=== PATIENT | female | born 1995 | race Caucasian/White ===

== ENCOUNTER → 2018-04-07 14:07 | Outpatient (CLI) | payer OTHER, SELFPAY | DX: Z23 Encounter for immunization (principal) | CPT/HCPCS: 90471; 90686 ==

== ENCOUNTER → 2018-10-02 07:40 | Outpatient (CLI) | payer OTHER, SELFPAY ==
[2018-10-02 09:34] LABS: Cholesterol 193 mg/dL (140-199); Glucose 94 mg/dL (70-100); HDL Cholesterol 44 mg/dL (40-60); LDL Cholesterol Calculated 124 mg/dL (<100); Triglycerides 123 mg/dL (35-150)
[2018-10-02 10:28] LABS: Thyroid Stimulating Hormone 2.19 uIU/mL (0.47-4.68)
== END ==
PROVIDERS: PCP Family Medicine; Visit Provider Family Medicine
DX: Z13.1 Encounter for screening for diabetes mellitus (principal); Z13.220 Encounter for screening for lipoid disorders
CPT/HCPCS: 36415; 80061; 82947; 84443

== ENCOUNTER 2019-02-11 16:00 | Outpatient (RCR) | payer OTHER, SELFPAY ==
--- NOTE | 2018-11-12 17:35 | PT.OPPOC ---
Current Diagnoses Pain in right shoulder (11/12/18) Provider Visit Care Team Role Provider Type No Contreras MD Attending Provider Physician Primary Care Provider Specialty: Family Practice Address: [address] [place] [address], [facility] Email: [email or web address] Plan Of Care PT-OP-T Assessment and Plan Start: 11/12/18 17:28 Freq: Status: Active Protocol: Document 11/12/18 17:29 EA (Rec: 11/12/18 17:31 EA [id number]) Physical Therapy Assessment Rehab Potential Rehabilitation Potential Good Evaluation Complexity Number of Personal Factors/Comorbidities 1-2 Number of Body Systems Impaired 1-2 Clinical Presentation at Evaluation Evolving Impairments Impairments Functional Activities Pain ROM Soft Tissue Mobility Strength Goals Three Impairment ROM Nursing Home Goal (LTG) Patient will reach full shoulder functional ROM to enable patient reach object overhead without difficulty. LTG Duration 4 wks Two Impairment Quick Dash 32 Nursing Home Goal (LTG) Quick Dash shoulder functional scale of < 15 to improve shoulder function LTG Duration 4 wks One Impairment NO HEP in place Agricultural Equipment Salesperson Goal (LTG) Patient will exhibits compliance and independent with HEP LTG Duration 3 wks Assessment Summary Assessment Pleasant 23 y/o F patient with referring diagnosis of right shoulder pain. Today patient exhibited difficulty in right UE overhead and backward reaching due to pain and limitation of motion. Assessment reveals weakness to most shoulder motion due to pain. Special tests reveals impingement syndrome with negative to labral tear test. No signs of radial nerve affectation during the tests but patient had reported occasional numbness to triceps region. Palpation reveals garde 2/4 tenderness over anterior and posterior shoulder. In my professional opinion, patient would benefit with skilled PT with a clinical goal of increasing shoulder stability, education, and reaching full ROM to enhamce quality of her life. Physical Therapy Plan Frequency and Duration Frequency of Treatment 2x/Week Duration of Treatment 8 wks Plan of Care Start Date 11/12/18 Plan of Care End Date 12/31/18 Therapeutic Interventions Therapeutic Interventions Home Exercise Program Joint Mobilizations Manual Therapy Patient/Caregiver Education Self-Care/Home Management Soft Tissue Mobilization Taping Therapeutic Activities Therapeutic Exercises Modalities Cold Pack/Ice Massage Electric Stimulation Ultrasound Next Visit Focus/Plan Next Note Type Treatment Note Next Visit Plan Modalities for pain, HEP, Strengthening Plan of Care Dates Plan of Care Start Date 11/12/18 Plan of Care End Date 12/31/18 Please Sign and Return: I have reviewed this Plan of Care and certify that the skilled therapy services above are required to meet the patient?s needs. Physician Signature Date Printed Name and Credentials Clinical Instructor Signature Printed Name and Credentials
--- NOTE | 2018-11-12 17:35 | PT.OIE ---
Current Diagnoses Pain in right shoulder (11/12/18) Past Medical History (Last Updated 09/03/18 @ 20:22 by Christi Correa) Seasonal allergies (Chronic ~2009) Migraines (Chronic ~2017) Ankle pain (Chronic ~2017) Anxiety (Chronic ~2013) Asthma (Chronic ~2009) Depression (Chronic ~2013) Eczema (Chronic ~2013) Headache (Chronic ~2010) Past Surgical History (Last Updated 09/03/18 @ 20:22 by Christi Correa) History of tonsillectomy (Resolved ~1999) Provider Visit Care Team Role Provider Type No Contreras MD Attending Provider Physician Primary Care Provider Specialty: Family Practice Address: [address] [place] [address], [facility] Email: [email or web address] Physical Therapy Initial Evaluation PT-OP-A Visit Information Start: 11/12/18 17:28 Freq: Status: Active Protocol: Document 11/12/18 17:35 EA (Rec: 11/13/18 16:35 EA [id number]) Out-Patient Physical Therapy Visit Information Visit Information Visit Type Initial Evaluation Visit Start Time 16:45 Visit Stop Time 17:30 Total Visit Minutes 45 Visit Number 1 Evaluation Information Evaluation Date 11/12/18 PT-OP-B Current Condition Start: 11/12/18 17:28 Freq: Status: Active Protocol: Document 11/12/18 17:35 EA (Rec: 11/13/18 16:35 EA [id number]) Current Condition History of Current Condition Onset Date 2 months ago Current Complaints Right shoulder localized pain and weakness History of Current Condition Patient reports had shoulder dislocation initially when she was in high school playing volleyball; states multiple dislocation since then and last happen few ago while her leaned on her shoulder while her arm was in the backseat. She reports no major treatment and relocated her shoulder by herself. She reports that in the past weeks since the injury there was no improvement she has been consistent with ICE and resting it. She noticed mostly symptoms increased right after shoulder exercises in the gym. Prior Treatments and Tests None reported formal PT Future Testing and Treatments Planned None reported Treatment Goals Patient/Caregiver Goals 1. Patient would like to strengthen her shoulder to prevent dislocation 2. She wants to get rid of the pain. 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 Current Functional Impairments (Reported) Functional Limitations- ADL's Moderate difficulty in all activities that requires overhead movement, reaching behind the back Functional Limitations- Work/School Difficulty in all task that requires shoulder rotation and overhead movement Functional Limitations- Recreation/ Unable to participate with Hobbies shoulder fitness exercises in the gym PT-OP-C Subjective Start: 11/12/18 17:28 Freq: Status: Active Protocol: Document 11/12/18 17:35 EA (Rec: 11/13/18 16:35 EA [id number]) OP-PT Subjective Patient Comments Patient Comments My shoulder hurts after working out Patient Reported Progress Improving Patient Questionnaires Quick Dash- Upper Extremity Quick Dash UE Score 32 Quick Dash UE Impairment 20 to 39% Impaired (Score 20- 39) OP-PT Pain Assessment Pain Assessment Grid Paper Pain Assessment Grid Completed Yes Location Right Anterior Shoulder Pain Location Details 7 Scale Used Numeric (1 - 10) Description Sharp Tightness Frequency Intermittent Pain Aggravating Factors Activity Exercise Pain Alleviating Factors Cold PT-OP-E Functional Tests Start: 11/12/18 17:28 Freq: Status: Active Protocol: Document 11/12/18 17:35 EA (Rec: 11/13/18 16:35 EA [id number]) Functional Tests Apley's Scratch Test Action 1- Left yes Action 1- Right yes Action 2- Left T4 Action 2- Right C7 Action 3- Left T8 Action 3- Right T12 PT-OP-J Posture/Palpation/Skin Start: 11/12/18 17:28 Freq: Status: Active Protocol: Document 11/12/18 17:35 EA (Rec: 11/13/18 16:35 EA [id number]) Posture Evaluation Comments Posture Comments WFL Palpation Assessment Location One Palpation Location anterior and posterior shoulder Palpation Findings Tenderness Palpation Details Grade 2/4 tenderness over rotaor cuff insertion and post shoulder PT-OP-K Range of Motion Start: 11/12/18 17:28 Freq: Status: Active Protocol: Document 11/12/18 17:35 EA (Rec: 11/13/18 16:35 EA [id number]) Shoulder Goniometric Range of Motion Shoulder Right Active Flexion 160 Abduction 160 External Rotation at 90 degrees 80 Abduction Internal Rotation 50 Left Active Shoulder ROM WFL Yes Shoulder ROM Limitations Shoulder ROM Limitations Pain PT-OP-L Special Tests Start: 11/12/18 17:28 Freq: Status: Active Protocol: Document 11/12/18 17:35 EA (Rec: 11/13/18 16:35 EA [id number]) Special Tests Shoulder Special Tests Clunk Test Test Results - Saavedra Gagandeep Impingement Test Results + Speed's Biceps Test Results - Elevation Impingement Test Results + Lift-Off Rotator Cuff Test Results + PT-OP-M Strength Start: 11/12/18 17:28 Freq: Status: Active Protocol: Document 11/12/18 17:35 EA (Rec: 11/13/18 16:35 EA [id number]) Shoulder Strength Shoulder Manual Muscle Testing Right Flexion 4- Good- Extension 4- Good- Abduction (C5) 4 Good Adduction 4 Good External Rotation 4- Good- Internal Rotation 4- Good- PT-OP-Q Treatments Start: 11/12/18 17:28 Freq: Status: Active Protocol: Document 11/12/18 17:35 EA (Rec: 11/13/18 16:35 EA [id number]) Self-Care/Home Management Treatment Education Patient Education Home Exercise Program Joint Protection Pain Management Safety PT-OP-T Assessment and Plan Start: 11/12/18 17:28 Freq: Status: Active Protocol: Document 11/12/18 17:29 EA (Rec: 11/12/18 17:31 EA [id number]) Physical Therapy Assessment Rehab Potential Rehabilitation Potential Good Evaluation Complexity Number of Personal Factors/Comorbidities 1-2 Number of Body Systems Impaired 1-2 Clinical Presentation at Evaluation Evolving Impairments Impairments Functional Activities Pain ROM Soft Tissue Mobility Strength Goals Three Impairment ROM Mcfp Goal (LTG) Patient will reach full shoulder functional ROM to enable patient reach object overhead without difficulty. LTG Duration 4 wks Two Impairment Quick Dash 32 Yard Attendant Goal (LTG) Quick Dash shoulder functional scale of < 15 to improve shoulder function LTG Duration 4 wks One Impairment NO HEP in place Yard Attendant Goal (LTG) Patient will exhibits compliance and independent with HEP LTG Duration 3 wks Assessment Summary Assessment Pleasant 23 y/o F patient with referring diagnosis of right shoulder pain. Today patient exhibited difficulty in right UE overhead and backward reaching due to pain and limitation of motion. Assessment reveals weakness to most shoulder motion due to pain. Special tests reveals impingement syndrome with negative to labral tear test. No signs of radial nerve affectation during the tests but patient had reported occasional numbness to triceps region. Palpation reveals garde 2/4 tenderness over anterior and posterior shoulder. In my professional opinion, patient would benefit with skilled PT with a clinical goal of increasing shoulder stability, education, and reaching full ROM to enhance quality of her life. Physical Therapy Plan Frequency and Duration Frequency of Treatment 2x/Week Duration of Treatment 8 wks Plan of Care Start Date 11/12/18 Plan of Care End Date 12/31/18 Therapeutic Interventions Therapeutic Interventions Home Exercise Program Joint Mobilizations Manual Therapy Patient/Caregiver Education Self-Care/Home Management Soft Tissue Mobilization Taping Therapeutic Activities Therapeutic Exercises Modalities Cold Pack/Ice Massage Electric Stimulation Ultrasound Next Visit Focus/Plan Next Note Type Treatment Note Next Visit Plan Modalities for pain, HEP, [place]
--- NOTE | 2018-11-14 15:55 | PT.OTN ---
Current Diagnoses Pain in right shoulder (11/14/18) Physical Therapy Treatment Note PT-OP-A Visit Information Start: 11/12/18 17:28 Freq: Status: Active Protocol: Document 11/14/18 15:15 DCW (Rec: 11/14/18 15:55 DCW [id number]) Out-Patient Physical Therapy Visit Information Visit Information Visit Type Treatment Note Visit Start Time 15:15 Visit Stop Time 16:10 Total Visit Minutes 55 Visit Number 2 Number of MISCELLANEOUS MACHINE OPERATOR Visits 0 Evaluation Information Evaluation Date 11/12/18 PT-OP-B Current Condition Start: 11/12/18 17:28 Freq: Status: Active Protocol: Document 11/12/18 17:35 EA (Rec: 11/13/18 16:35 EA [id number]) Current Condition History of Current Condition Onset Date 2 months ago Current Complaints Right shoulder localized pain and weakness History of Current Condition Patient reports had shoulder dislocation initially when she was in highschool playing volleyball; states multple dislocation since then and last happen few ago while her leaned on her shoulder while her arm was in the backseat. She reports no major treament and relocated her shoulder by herself. She reports that in the past weeks since the injury there was no improvement she has been consistent with ICE and resting it. She noticed mostly symptoms increased right after shoulder exercises in the gym. Prior Treatments and Tests None reported formal PT Future Testing and Treatments Planned None reported Treatment Goals Patient/Caregiver Goals 1. Patient would like to strengthen her shoulder to prevent disclocation 2. She wants to get rid of the pain. 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 Current Functional Impairments (Reported) Functional Limitations- ADL's Moderate difficulty in all activities that requires overhead movement, reaching behnd the back Functional Limitations- Work/School Difficulty in all task that requires shoulder rotation and overhead movement Functional Limitations- Recreation/ Unable to participate with Hobbies shoulder fitness exercises in the gym PT-OP-C Subjective Start: 11/12/18 17:28 Freq: Status: Active Protocol: Document 11/14/18 15:15 DCW (Rec: 11/14/18 15:55 DCW [id number]) OP-PT Subjective Patient Comments Patient Comments When I do lats and chest press, my shoulder will pop, and then I'll keep working out , and when I'm done at the end of the day, it's hurting pretty good. PT-OP-E Functional Tests Start: 11/12/18 17:28 Freq: Status: Active Protocol: Document 11/12/18 17:35 EA (Rec: 11/13/18 16:35 EA [id number]) Functional Tests Apley's Scratch Test Action 1- Left yes Action 1- Right yes Action 2- Left T4 Action 2- Right C7 Action 3- Left T8 Action 3- Right T12 PT-OP-J Posture/Palpation/Skin Start: 11/12/18 17:28 Freq: Status: Active Protocol: Document 11/12/18 17:35 EA (Rec: 11/13/18 16:35 EA [id number]) Posture Evaluation Comments Posture Comments WFL Palpation Assessment Location One Palpation Location anterior and posterior shoulder Palpation Findings Tenderness Palpation Details Grade 2/4 tenderness over rotaor cuff insertion and post shoulder PT-OP-K Range of Motion Start: 11/12/18 17:28 Freq: Status: Active Protocol: Document 11/12/18 17:35 EA (Rec: 11/13/18 16:35 EA [id number]) Shoulder Goniometric Range of Motion Shoulder Right Active Flexion 160 Abduction 160 External Rotation at 90 degrees 80 Abduction Internal Rotation 50 Left Active Shoulder ROM WFL Yes Shoulder ROM Limitations Shoulder ROM Limitations Pain PT-OP-L Special Tests Start: 11/12/18 17:28 Freq: Status: Active Protocol: Document 11/12/18 17:35 EA (Rec: 11/13/18 16:35 EA [id number]) Special Tests Shoulder Special Tests Clunk Test Test Results - Saavedra Gagandeep Impingement Test Results + Speed's Biceps Test Results - Elevation Impingement Test Results + Lift-Off Rotator Cuff Test Results + PT-OP-M Strength Start: 11/12/18 17:28 Freq: Status: Active Protocol: Document 11/12/18 17:35 EA (Rec: 11/13/18 16:35 EA [id number]) Shoulder Strength Shoulder Manual Muscle Testing Right Flexion 4- Good- Extension 4- Good- Abduction (C5) 4 Good Adduction 4 Good External Rotation 4- Good- Internal Rotation 4- Good- PT-OP-Q Treatments Start: 11/12/18 17:28 Freq: Status: Active Protocol: Document 11/14/18 15:15 DCW (Rec: 11/14/18 15:55 DCW [id number]) Cardio Equipment Upper Body Ergometer (UBE) Duration (Minutes) 5 RPM 60 Seat Position 14 Height 4 Therapeutic Exercises Supine Exercises Serratus Punch Supine Exercise Name Serratus Punch Side bilateral Resistance 2# Standing Exercises Shoulder Abduction Standing Exercise Name Abduction Side bilateral Resistance Lv 2 Equipment Used T-band Shoulder Extension Standing Exercise Name Extension Side bilateral Resistance Lv 2 Equipment Used T-band Shoulder ER Standing Exercise Name External Rotation Side bilateral Resistance Lv 3 Equipment Used T-band Shoulder IR Standing Exercise Name Internal Rotation Side bilateral Resistance Lv 3 Equipment Used T-band Other Exercises UE resisted side-stepping Other Exercise Name UE side-stepping Resistance Yellow Equipment Used T-band Manual Therapy Treatment Soft Tissue Mobilization Supraspinatus Body Location R Supraspinatus Mobilization Type Strumming Sustained Pressure Trigger Point Release Body Position Sitting Upper Trap Body Location R Upper Trap Mobilization Type Strumming Sustained Pressure Body Position Sitting Subscapularis Body Location R Subscap Mobilization Type Strumming Sustained Pressure Body Position Sitting PT-OP-R Modalities Start: 11/14/18 15:14 Freq: Status: Active Protocol: Document 11/14/18 15:15 DCW (Rec: 11/14/18 15:55 DCW [id number]) Electric Stimulation Electric Stimulation Interferential Current (IFC) Body Location Right Shoulder Duration (Minutes) 15 Patient Position Sitting Combined With Heat/Cold Cold Pack PT-OP-T Assessment and Plan Start: 11/12/18 17:28 Freq: Status: Active Protocol: Document 11/14/18 15:15 DCW (Rec: 11/14/18 15:55 DCW [id number]) Physical Therapy Assessment Impairments Impairments Functional Activities Pain ROM Soft Tissue Mobility Strength Goals Three Impairment ROM Charging Board Operator Goal (LTG) Patient will reach full shoulder functional ROM to enable patient reach object overehead without difficulty. LTG Duration 4 wks Two Impairment Quick Dash 32 Charging Board Operator Goal (LTG) Quick Dash shoulder functional scale of < 15 to improve shoulder function LTG Duration 4 wks One Impairment NO HEP in place Charging Board Operator Goal (LTG) Patient will exhibits compliance and independent with HEP LTG Duration 3 wks Assessment Summary Assessment Pt tolerated treatment very well, but had noticeable fatigue with TherEx. Instructed to perform T-band shoulder exercises at home. Physical Therapy Plan Frequency and Duration Frequency of Treatment 2x/Week Duration of Treatment 8 wks Plan of Care Start Date 11/12/18 Plan of Care End Date 12/31/18 Therapeutic Interventions Therapeutic Interventions Home Exercise Program Joint Mobilizations Manual Therapy Patient/Caregiver Education Self-Care/Home Management Soft Tissue Mobilization Taping Therapeutic Activities Therapeutic Exercises Modalities Cold Pack/Ice Massage Electric Stimulation Ultrasound Next Visit Focus/Plan Next Note Type Treatment Note Next Visit Plan Modalities for pain, HEP, Strengthening
--- NOTE | 2018-12-16 17:23 | PT.OTN ---
Current Diagnoses Pain in right shoulder (12/16/18) Physical Therapy Treatment Note PT-OP-A Visit Information Start: 11/12/18 17:28 Freq: Status: Active Protocol: Document 12/16/18 16:45 DCW (Rec: 12/16/18 17:23 DCW [id number]) Out-Patient Physical Therapy Visit Information Visit Information Visit Type Treatment Note Visit Start Time 16:45 Visit Stop Time 17:35 Total Visit Minutes 50 Visit Number 3 Number of ELECTROCARDIOGRAPH OPERATOR Visits 0 Evaluation Information Evaluation Date 11/12/18 PT-OP-B Current Condition Start: 11/12/18 17:28 Freq: Status: Active Protocol: Document 11/12/18 17:35 EA (Rec: 11/13/18 16:35 EA [id number]) Current Condition History of Current Condition Onset Date 2 months ago Current Complaints Right shoulder localized pain and weakness History of Current Condition Patient reports had shoulder dislocation initially when she was in highschool playing volleyball; states multple dislocation since then and last happen few ago while her leaned on her shoulder while her arm was in the backseat. She reports no major treament and relocated her shoulder by herself. She reports that in the past weeks since the injury there was no improvement she has been consistent with ICE and resting it. She noticed mostly symptoms increased right after shoulder exercises in the gym. Prior Treatments and Tests None reported formal PT Future Testing and Treatments Planned None reported Treatment Goals Patient/Caregiver Goals 1. Patient would like to strengthen her shoulder to prevent disclocation 2. She wants to get rid of the pain. 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 Current Functional Impairments (Reported) Functional Limitations- ADL's Moderate difficulty in all activities that requires overhead movement, reaching behnd the back Functional Limitations- Work/School Difficulty in all task that requires shoulder rotation and overhead movement Functional Limitations- Recreation/ Unable to participate with Hobbies shoulder fitness exercises in the gym PT-OP-C Subjective Start: 11/12/18 17:28 Freq: Status: Active Protocol: Document 12/16/18 16:45 DCW (Rec: 12/16/18 17:23 DCW [id number]) OP-PT Subjective Patient Comments Patient Comments I've been doing my exercise twice a day like you said, and I think it is getting better. Patient Reported Progress Improving PT-OP-E Functional Tests Start: 11/12/18 17:28 Freq: Status: Active Protocol: Document 11/12/18 17:35 EA (Rec: 11/13/18 16:35 EA [id number]) Functional Tests Apley's Scratch Test Action 1- Left yes Action 1- Right yes Action 2- Left T4 Action 2- Right C7 Action 3- Left T8 Action 3- Right T12 PT-OP-J Posture/Palpation/Skin Start: 11/12/18 17:28 Freq: Status: Active Protocol: Document 11/12/18 17:35 EA (Rec: 11/13/18 16:35 EA [id number]) Posture Evaluation Comments Posture Comments WFL Palpation Assessment Location One Palpation Location anterior and posterior shoulder Palpation Findings Tenderness Palpation Details Grade 2/4 tenderness over rotaor cuff insertion and post shoulder PT-OP-K Range of Motion Start: 11/12/18 17:28 Freq: Status: Active Protocol: Document 11/12/18 17:35 EA (Rec: 11/13/18 16:35 EA [id number]) Shoulder Goniometric Range of Motion Shoulder Right Active Flexion 160 Abduction 160 External Rotation at 90 degrees 80 Abduction Internal Rotation 50 Left Active Shoulder ROM WFL Yes Shoulder ROM Limitations Shoulder ROM Limitations Pain PT-OP-L Special Tests Start: 11/12/18 17:28 Freq: Status: Active Protocol: Document 11/12/18 17:35 EA (Rec: 11/13/18 16:35 EA [id number]) Special Tests Shoulder Special Tests Clunk Test Test Results - Saavedra Gagandeep Impingement Test Results + Speed's Biceps Test Results - Elevation Impingement Test Results + Lift-Off Rotator Cuff Test Results + PT-OP-M Strength Start: 11/12/18 17:28 Freq: Status: Active Protocol: Document 11/12/18 17:35 EA (Rec: 11/13/18 16:35 EA [id number]) Shoulder Strength Shoulder Manual Muscle Testing Right Flexion 4- Good- Extension 4- Good- Abduction (C5) 4 Good Adduction 4 Good External Rotation 4- Good- Internal Rotation 4- Good- PT-OP-Q Treatments Start: 11/12/18 17:28 Freq: Status: Active Protocol: Document 12/16/18 16:45 DCW (Rec: 12/16/18 17:23 DCW [id number]) Cardio Equipment Upper Body Ergometer (UBE) Duration (Minutes) 5 RPM 60 Seat Position 14 Height 4 Therapeutic Exercises Standing Exercises Body Blade Standing Exercise Name Body Blade - Flex, Abd, IR Side right Resistance Yellow Other Exercises Wall Clocks Other Exercise Name Wall Clocks Side bilateral Resistance Yellow Equipment Used T-band UE resisted side-stepping Other Exercise Name UE side-stepping Resistance Yellow Equipment Used T-band Manual Therapy Treatment Soft Tissue Mobilization Supraspinatus Body Location R Supraspinatus Mobilization Type Strumming Sustained Pressure Trigger Point Release Body Position Sitting Upper Trap Body Location R Upper Trap Mobilization Type Strumming Sustained Pressure Body Position Sitting Subscapularis Body Location R Subscap Mobilization Type Strumming Sustained Pressure Body Position Sitting PT-OP-R Modalities Start: 11/14/18 15:14 Freq: Status: Active Protocol: Document 12/16/18 16:45 DCW (Rec: 12/16/18 17:23 DCW [id number]) Electric Stimulation Electric Stimulation Interferential Current (IFC) Body Location Right Shoulder Duration (Minutes) 15 Patient Position Sitting Combined With Heat/Cold Cold Pack PT-OP-T Assessment and Plan Start: 11/12/18 17:28 Freq: Status: Active Protocol: Document 12/16/18 16:45 DCW (Rec: 12/16/18 17:23 DCW [id number]) Physical Therapy Assessment Impairments Impairments Functional Activities Pain ROM Soft Tissue Mobility Strength Goals Three Impairment ROM Prison Goal (LTG) Patient will reach full shoulder functional ROM to enable patient reach object overehead without difficulty. LTG Duration 4 wks Two Impairment Quick Dash 32 Prison Goal (LTG) Quick Dash shoulder functional scale of < 15 to improve shoulder function LTG Duration 4 wks One Impairment NO HEP in place Prison Goal (LTG) Patient will exhibits compliance and independent with HEP LTG Duration 3 wks Assessment Summary Assessment Pt doing well performing HEP independently, showing progress with some of her mobility, however still has flexion/abduction weakness secondary to shoulder pain. Physical Therapy Plan Frequency and Duration Frequency of Treatment 2x/Week Duration of Treatment 8 wks Plan of Care Start Date 11/12/18 Plan of Care End Date 12/31/18 Therapeutic Interventions Therapeutic Interventions Home Exercise Program Joint Mobilizations Manual Therapy Patient/Caregiver Education Self-Care/Home Management Soft Tissue Mobilization Taping Therapeutic Activities Therapeutic Exercises Modalities Cold Pack/Ice Massage Electric Stimulation Ultrasound Next Visit Focus/Plan Next Note Type Treatment Note Next Visit Plan Modalities for pain, HEP, Strengthening
--- NOTE | 2018-12-19 16:21 | PT.OTN ---
Current Diagnoses Pain in right shoulder (12/19/18) Physical Therapy Treatment Note PT-OP-A Visit Information Start: 11/12/18 17:28 Freq: Status: Active Protocol: Document 12/19/18 16:00 GGD (Rec: 12/19/18 16:20 GGD [id number]) Out-Patient Physical Therapy Visit Information Visit Information Visit Type Treatment Note Visit Start Time 15:15 Visit Stop Time 16:10 Total Visit Minutes 50 Visit Number 4 Number of REVIEW RN Visits 1 PT-OP-B Current Condition Start: 11/12/18 17:28 Freq: Status: Active Protocol: Document 11/12/18 17:35 EA (Rec: 11/13/18 16:35 EA [id number]) Current Condition History of Current Condition Onset Date 2 months ago Current Complaints Right shoulder localized pain and weakness History of Current Condition Patient reports had shoulder dislocation initially when she was in highschool playing volleyball; states multple dislocation since then and last happen few ago while her leaned on her shoulder while her arm was in the backseat. She reports no major treament and relocated her shoulder by herself. She reports that in the past weeks since the injury there was no improvement she has been consistent with ICE and resting it. She noticed mostly symptoms increased right after shoulder exercises in the gym. Prior Treatments and Tests None reported formal PT Future Testing and Treatments Planned None reported Treatment Goals Patient/Caregiver Goals 1. Patient would like to strengthen her shoulder to prevent disclocation 2. She wants to get rid of the pain. 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 Current Functional Impairments (Reported) Functional Limitations- ADL's Moderate difficulty in all activities that requires overhead movement, reaching behnd the back Functional Limitations- Work/School Difficulty in all task that requires shoulder rotation and overhead movement Functional Limitations- Recreation/ Unable to participate with Hobbies shoulder fitness exercises in the gym PT-OP-C Subjective Start: 11/12/18 17:28 Freq: Status: Active Protocol: Document 12/19/18 16:00 GGD (Rec: 12/19/18 16:20 GGD [id number]) OP-PT Subjective Patient Comments Patient Comments Pt states she was sore after last visit for a day. PT-OP-E Functional Tests Start: 11/12/18 17:28 Freq: Status: Active Protocol: Document 11/12/18 17:35 EA (Rec: 11/13/18 16:35 EA [id number]) Functional Tests Apley's Scratch Test Action 1- Left yes Action 1- Right yes Action 2- Left T4 Action 2- Right C7 Action 3- Left T8 Action 3- Right T12 PT-OP-J Posture/Palpation/Skin Start: 11/12/18 17:28 Freq: Status: Active Protocol: Document 11/12/18 17:35 EA (Rec: 11/13/18 16:35 EA [id number]) Posture Evaluation Comments Posture Comments WFL Palpation Assessment Location One Palpation Location anterior and posterior shoulder Palpation Findings Tenderness Palpation Details Grade 2/4 tenderness over rotaor cuff insertion and post shoulder PT-OP-K Range of Motion Start: 11/12/18 17:28 Freq: Status: Active Protocol: Document 11/12/18 17:35 EA (Rec: 11/13/18 16:35 EA [id number]) Shoulder Goniometric Range of Motion Shoulder Right Active Flexion 160 Abduction 160 External Rotation at 90 degrees 80 Abduction Internal Rotation 50 Left Active Shoulder ROM WFL Yes Shoulder ROM Limitations Shoulder ROM Limitations Pain PT-OP-L Special Tests Start: 11/12/18 17:28 Freq: Status: Active Protocol: Document 11/12/18 17:35 EA (Rec: 11/13/18 16:35 EA [id number]) Special Tests Shoulder Special Tests Clunk Test Test Results - Saavedra Gagandeep Impingement Test Results + Speed's Biceps Test Results - Elevation Impingement Test Results + Lift-Off Rotator Cuff Test Results + PT-OP-M Strength Start: 11/12/18 17:28 Freq: Status: Active Protocol: Document 11/12/18 17:35 EA (Rec: 11/13/18 16:35 EA [id number]) Shoulder Strength Shoulder Manual Muscle Testing Right Flexion 4- Good- Extension 4- Good- Abduction (C5) 4 Good Adduction 4 Good External Rotation 4- Good- Internal Rotation 4- Good- PT-OP-Q Treatments Start: 11/12/18 17:28 Freq: Status: Active Protocol: Document 12/19/18 16:00 GGD (Rec: 12/19/18 16:20 GGD [id number]) Cardio Equipment Upper Body Ergometer (UBE) Duration (Minutes) 5 RPM 60 Seat Position 14 Height 4 Therapeutic Exercises Standing Exercises Body Blade Standing Exercise Name Body Blade - Flex, Abd, IR Side right Resistance Yellow Other Exercises Wall Clocks Other Exercise Name Wall Clocks Side bilateral Resistance Yellow Equipment Used T-band UE resisted side-stepping Other Exercise Name UE side-stepping Resistance Yellow Equipment Used T-band Manual Therapy Treatment Soft Tissue Mobilization Supraspinatus Body Location R Supraspinatus Mobilization Type Strumming Sustained Pressure Trigger Point Release Body Position Sitting Upper Trap Body Location R Upper Trap Mobilization Type Strumming Sustained Pressure Body Position Sitting Subscapularis Body Location R Subscap Mobilization Type Strumming Sustained Pressure Body Position Sitting PT-OP-R Modalities Start: 11/14/18 15:14 Freq: Status: Active Protocol: Document 12/19/18 16:00 GGD (Rec: 12/19/18 16:20 GGD [id number]) Electric Stimulation Electric Stimulation Interferential Current (IFC) Body Location Right Shoulder Duration (Minutes) 15 Patient Position Sitting Combined With Heat/Cold Cold Pack PT-OP-T Assessment and Plan Start: 11/12/18 17:28 Freq: Status: Active Protocol: Document 12/19/18 16:00 GGD (Rec: 12/19/18 16:20 GGD [id number]) Physical Therapy Assessment Assessment Summary Assessment Pt limited with shoulder flexion. She had good tolerance to shoulder strengthening. Physical Therapy Plan Frequency and Duration Frequency of Treatment 2x/Week Duration of Treatment 8 wks Plan of Care Start Date 11/12/18 Plan of Care End Date 12/31/18 Next Visit Focus/Plan Next Note Type Treatment Note Next Visit Plan Modalities for pain, HEP, Strengthening
--- NOTE | 2018-12-23 17:37 | PT.OTN ---
Current Diagnoses Pain in right shoulder (12/23/18) Physical Therapy Treatment Note PT-OP-A Visit Information Start: 11/12/18 17:28 Freq: Status: Active Protocol: Document 12/23/18 16:45 DCW (Rec: 12/23/18 17:36 DCW [id number]) Out-Patient Physical Therapy Visit Information Visit Information Visit Type Treatment Note Visit Start Time 16:45 Visit Stop Time 17:40 Total Visit Minutes 55 Visit Number 5 Number of MOVE COORDINATOR Visits 0 Evaluation Information Evaluation Date 11/12/18 PT-OP-B Current Condition Start: 11/12/18 17:28 Freq: Status: Active Protocol: Document 11/12/18 17:35 EA (Rec: 11/13/18 16:35 EA [id number]) Current Condition History of Current Condition Onset Date 2 months ago Current Complaints Right shoulder localized pain and weakness History of Current Condition Patient reports had shoulder dislocation initially when she was in highschool playing volleyball; states multple dislocation since then and last happen few ago while her leaned on her shoulder while her arm was in the backseat. She reports no major treament and relocated her shoulder by herself. She reports that in the past weeks since the injury there was no improvement she has been consistent with ICE and resting it. She noticed mostly symptoms increased right after shoulder exercises in the gym. Prior Treatments and Tests None reported formal PT Future Testing and Treatments Planned None reported Treatment Goals Patient/Caregiver Goals 1. Patient would like to strengthen her shoulder to prevent disclocation 2. She wants to get rid of the pain. 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 Current Functional Impairments (Reported) Functional Limitations- ADL's Moderate difficulty in all activities that requires overhead movement, reaching behnd the back Functional Limitations- Work/School Difficulty in all task that requires shoulder rotation and overhead movement Functional Limitations- Recreation/ Unable to participate with Hobbies shoulder fitness exercises in the gym PT-OP-C Subjective Start: 11/12/18 17:28 Freq: Status: Active Protocol: Document 12/23/18 16:45 DCW (Rec: 12/23/18 17:36 DCW [id number]) OP-PT Subjective Patient Comments Patient Comments Pt not sure if she has seen much improvement since last week, feels increased anterior pain. PT-OP-E Functional Tests Start: 11/12/18 17:28 Freq: Status: Active Protocol: Document 11/12/18 17:35 EA (Rec: 11/13/18 16:35 EA [id number]) Functional Tests Apley's Scratch Test Action 1- Left yes Action 1- Right yes Action 2- Left T4 Action 2- Right C7 Action 3- Left T8 Action 3- Right T12 PT-OP-J Posture/Palpation/Skin Start: 11/12/18 17:28 Freq: Status: Active Protocol: Document 11/12/18 17:35 EA (Rec: 11/13/18 16:35 EA [id number]) Posture Evaluation Comments Posture Comments WFL Palpation Assessment Location One Palpation Location anterior and posterior shoulder Palpation Findings Tenderness Palpation Details Grade 2/4 tenderness over rotaor cuff insertion and post shoulder PT-OP-K Range of Motion Start: 11/12/18 17:28 Freq: Status: Active Protocol: Document 11/12/18 17:35 EA (Rec: 11/13/18 16:35 EA [id number]) Shoulder Goniometric Range of Motion Shoulder Right Active Flexion 160 Abduction 160 External Rotation at 90 degrees 80 Abduction Internal Rotation 50 Left Active Shoulder ROM WFL Yes Shoulder ROM Limitations Shoulder ROM Limitations Pain PT-OP-L Special Tests Start: 11/12/18 17:28 Freq: Status: Active Protocol: Document 11/12/18 17:35 EA (Rec: 11/13/18 16:35 EA [id number]) Special Tests Shoulder Special Tests Clunk Test Test Results - Saavedra Gagandeep Impingement Test Results + Speed's Biceps Test Results - Elevation Impingement Test Results + Lift-Off Rotator Cuff Test Results + PT-OP-M Strength Start: 11/12/18 17:28 Freq: Status: Active Protocol: Document 11/12/18 17:35 EA (Rec: 11/13/18 16:35 EA [id number]) Shoulder Strength Shoulder Manual Muscle Testing Right Flexion 4- Good- Extension 4- Good- Abduction (C5) 4 Good Adduction 4 Good External Rotation 4- Good- Internal Rotation 4- Good- PT-OP-Q Treatments Start: 11/12/18 17:28 Freq: Status: Active Protocol: Document 12/23/18 16:45 DCW (Rec: 12/23/18 17:33 DCW [id number]) Cardio Equipment Upper Body Ergometer (UBE) Duration (Minutes) 5 RPM 60 Seat Position 14 Height 4 Therapeutic Exercises Standing Exercises Body Blade Standing Exercise Name Body Blade - Flex, Abd, IR Side right Resistance Yellow Other Exercises Wall Clocks Other Exercise Name Wall Clocks Side bilateral Resistance Yellow Equipment Used T-band UE resisted side-stepping Other Exercise Name UE side-stepping Resistance Yellow Equipment Used T-band Manual Therapy Treatment Soft Tissue Mobilization Supraspinatus Body Location R Supraspinatus Mobilization Type Strumming Sustained Pressure Trigger Point Release Body Position Sitting Upper Trap Body Location R Upper Trap Mobilization Type Strumming Sustained Pressure Body Position Sitting Subscapularis Body Location R Subscap Mobilization Type Strumming Sustained Pressure Body Position Sitting PT-OP-R Modalities Start: 11/14/18 15:14 Freq: Status: Active Protocol: Document 12/23/18 16:45 DCW (Rec: 12/23/18 17:33 DCW [id number]) Electric Stimulation Electric Stimulation Interferential Current (IFC) Body Location Right Shoulder Duration (Minutes) 15 Patient Position Sitting Combined With Heat/Cold Cold Pack PT-OP-T Assessment and Plan Start: 11/12/18 17:28 Freq: Status: Active Protocol: Document 12/23/18 16:45 DCW (Rec: 12/23/18 17:33 DCW [id number]) Physical Therapy Assessment Impairments Impairments Functional Activities Pain ROM Soft Tissue Mobility Strength Goals Three Impairment ROM Marketing Information Analyst Goal (LTG) Patient will reach full shoulder functional ROM to enable patient reach object overehead without difficulty. LTG Duration 4 wks Two Impairment Quick Dash 32 Marketing Information Analyst Goal (LTG) Quick Dash shoulder functional scale of < 15 to improve shoulder function LTG Duration 4 wks One Impairment NO HEP in place Marketing Information Analyst Goal (LTG) Patient will exhibits compliance and independent with HEP LTG Duration 3 wks Assessment Summary Assessment Pt appears to be showing signs of Bicipital tendonitis now, likely due to recent overuse on elbow flexion for lifting while her shoulder has been painful. Physical Therapy Plan Frequency and Duration Frequency of Treatment 2x/Week Duration of Treatment 8 wks Plan of Care Start Date 11/12/18 Plan of Care End Date 12/31/18 Therapeutic Interventions Therapeutic Interventions Home Exercise Program Joint Mobilizations Manual Therapy Patient/Caregiver Education Self-Care/Home Management Soft Tissue Mobilization Taping Therapeutic Activities Therapeutic Exercises Modalities Cold Pack/Ice Massage Electric Stimulation Ultrasound Next Visit Focus/Plan Next Note Type Treatment Note Next Visit Plan Modalities for pain, HEP, Strengthening
--- NOTE | 2018-12-25 16:39 | PT.OTN ---
Current Diagnoses Pain in right shoulder (12/25/18) Physical Therapy Treatment Note PT-OP-A Visit Information Start: 11/12/18 17:28 Freq: Status: Active Protocol: Document 12/25/18 16:00 DCW (Rec: 12/25/18 16:39 DCW [id number]) Out-Patient Physical Therapy Visit Information Visit Information Visit Type Treatment Note Visit Start Time 16:00 Visit Stop Time 16:50 Total Visit Minutes 50 Visit Number 6 Number of SEWAGE RETICULATION DRAFTING OFFICER Visits 0 Evaluation Information Evaluation Date 11/12/18 PT-OP-B Current Condition Start: 11/12/18 17:28 Freq: Status: Active Protocol: Document 11/12/18 17:35 EA (Rec: 11/13/18 16:35 EA [id number]) Current Condition History of Current Condition Onset Date 2 months ago Current Complaints Right shoulder localized pain and weakness History of Current Condition Patient reports had shoulder dislocation initially when she was in highschool playing volleyball; states multple dislocation since then and last happen few ago while her leaned on her shoulder while her arm was in the backseat. She reports no major treament and relocated her shoulder by herself. She reports that in the past weeks since the injury there was no improvement she has been consistent with ICE and resting it. She noticed mostly symptoms increased right after shoulder exercises in the gym. Prior Treatments and Tests None reported formal PT Future Testing and Treatments Planned None reported Treatment Goals Patient/Caregiver Goals 1. Patient would like to strengthen her shoulder to prevent disclocation 2. She wants to get rid of the pain. 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 Current Functional Impairments (Reported) Functional Limitations- ADL's Moderate difficulty in all activities that requires overhead movement, reaching behnd the back Functional Limitations- Work/School Difficulty in all task that requires shoulder rotation and overhead movement Functional Limitations- Recreation/ Unable to participate with Hobbies shoulder fitness exercises in the gym PT-OP-C Subjective Start: 11/12/18 17:28 Freq: Status: Active Protocol: Document 12/25/18 16:00 DCW (Rec: 12/25/18 16:39 DCW [id number]) OP-PT Subjective Patient Comments Patient Comments Pt notes her shoulder is a little more sore after it popped earlier today. PT-OP-E Functional Tests Start: 11/12/18 17:28 Freq: Status: Active Protocol: Document 11/12/18 17:35 EA (Rec: 11/13/18 16:35 EA [id number]) Functional Tests Apley's Scratch Test Action 1- Left yes Action 1- Right yes Action 2- Left T4 Action 2- Right C7 Action 3- Left T8 Action 3- Right T12 PT-OP-J Posture/Palpation/Skin Start: 11/12/18 17:28 Freq: Status: Active Protocol: Document 11/12/18 17:35 EA (Rec: 11/13/18 16:35 EA [id number]) Posture Evaluation Comments Posture Comments WFL Palpation Assessment Location One Palpation Location anterior and posterior shoulder Palpation Findings Tenderness Palpation Details Grade 2/4 tenderness over rotaor cuff insertion and post shoulder PT-OP-K Range of Motion Start: 11/12/18 17:28 Freq: Status: Active Protocol: Document 11/12/18 17:35 EA (Rec: 11/13/18 16:35 EA [id number]) Shoulder Goniometric Range of Motion Shoulder Right Active Flexion 160 Abduction 160 External Rotation at 90 degrees 80 Abduction Internal Rotation 50 Left Active Shoulder ROM WFL Yes Shoulder ROM Limitations Shoulder ROM Limitations Pain PT-OP-L Special Tests Start: 11/12/18 17:28 Freq: Status: Active Protocol: Document 11/12/18 17:35 EA (Rec: 11/13/18 16:35 EA [id number]) Special Tests Shoulder Special Tests Clunk Test Test Results - Saavedra Gagandeep Impingement Test Results + Speed's Biceps Test Results - Elevation Impingement Test Results + Lift-Off Rotator Cuff Test Results + PT-OP-M Strength Start: 11/12/18 17:28 Freq: Status: Active Protocol: Document 11/12/18 17:35 EA (Rec: 11/13/18 16:35 EA [id number]) Shoulder Strength Shoulder Manual Muscle Testing Right Flexion 4- Good- Extension 4- Good- Abduction (C5) 4 Good Adduction 4 Good External Rotation 4- Good- Internal Rotation 4- Good- PT-OP-Q Treatments Start: 11/12/18 17:28 Freq: Status: Active Protocol: Document 12/25/18 16:00 DCW (Rec: 12/25/18 16:39 DCW [id number]) Cardio Equipment Upper Body Ergometer (UBE) Duration (Minutes) 5 RPM 60 Seat Position 14 Height 4 Therapeutic Exercises Standing Exercises Horizontal Abduction Standing Exercise Name Horizontal Abduction Side bilateral Resistance Lv 2 Equipment Used T-band Body Blade Standing Exercise Name Body Blade - Flex, Abd, IR Side right Resistance Yellow Other Exercises Wall Clocks Other Exercise Name Wall Clocks Side bilateral Resistance Yellow Equipment Used T-band UE resisted side-stepping Other Exercise Name UE side-stepping Resistance Green Equipment Used T-band Manual Therapy Treatment Soft Tissue Mobilization Supraspinatus Body Location R Supraspinatus Mobilization Type Strumming Sustained Pressure Trigger Point Release Body Position Sitting Upper Trap Body Location R Upper Trap Mobilization Type Strumming Sustained Pressure Body Position Sitting Subscapularis Body Location R Subscap Mobilization Type Strumming Sustained Pressure Body Position Sitting PT-OP-R Modalities Start: 11/14/18 15:14 Freq: Status: Active Protocol: Document 12/25/18 16:00 DCW (Rec: 12/25/18 16:39 DCW [id number]) Electric Stimulation Electric Stimulation Interferential Current (IFC) Body Location Right Shoulder Duration (Minutes) 15 Patient Position Sitting Combined With Heat/Cold Cold Pack PT-OP-T Assessment and Plan Start: 11/12/18 17:28 Freq: Status: Active Protocol: Document 12/25/18 16:00 DCW (Rec: 12/25/18 16:39 DCW [id number]) Physical Therapy Assessment Impairments Impairments Functional Activities Pain ROM Soft Tissue Mobility Strength Goals Three Impairment ROM Chairman & Co Founder Goal (LTG) Patient will reach full shoulder functional ROM to enable patient reach object overehead without difficulty. LTG Duration 4 wks Two Impairment Quick Dash 32 Alf Goal (LTG) Quick Dash shoulder functional scale of < 15 to improve shoulder function LTG Duration 4 wks One Impairment NO HEP in place Chairman & Co Founder Goal (LTG) Patient will exhibits compliance and independent with HEP LTG Duration 3 wks Assessment Summary Assessment Pt making slow but fairly regular progress with her shoulder mobility. Physical Therapy Plan Frequency and Duration Frequency of Treatment 2x/Week Duration of Treatment 8 wks Plan of Care Start Date 11/12/18 Plan of Care End Date 12/31/18 Therapeutic Interventions Therapeutic Interventions Home Exercise Program Joint Mobilizations Manual Therapy Patient/Caregiver Education Self-Care/Home Management Soft Tissue Mobilization Taping Therapeutic Activities Therapeutic Exercises Modalities Cold Pack/Ice Massage Electric Stimulation Ultrasound Next Visit Focus/Plan Next Note Type Treatment Note Next Visit Plan Modalities for pain, HEP, Strengthening
--- NOTE | 2018-12-30 17:26 | PT.OTN ---
Current Diagnoses Pain in right shoulder (12/30/18) Physical Therapy Treatment Note PT-OP-A Visit Information Start: 11/12/18 17:28 Freq: Status: Active Protocol: Document 12/30/18 16:45 DCW (Rec: 12/30/18 17:26 DCW [id number]) Out-Patient Physical Therapy Visit Information Visit Information Visit Type Treatment Note Visit Start Time 16:45 Visit Stop Time 17:35 Total Visit Minutes 50 Visit Number 7 Number of MECHANICAL MAINTENANCE SUPERVISOR Visits 0 Evaluation Information Evaluation Date 11/12/18 PT-OP-B Current Condition Start: 11/12/18 17:28 Freq: Status: Active Protocol: Document 11/12/18 17:35 EA (Rec: 11/13/18 16:35 EA [id number]) Current Condition History of Current Condition Onset Date 2 months ago Current Complaints Right shoulder localized pain and weakness History of Current Condition Patient reports had shoulder dislocation initially when she was in highschool playing volleyball; states multple dislocation since then and last happen few ago while her leaned on her shoulder while her arm was in the backseat. She reports no major treament and relocated her shoulder by herself. She reports that in the past weeks since the injury there was no improvement she has been consistent with ICE and resting it. She noticed mostly symptoms increased right after shoulder exercises in the gym. Prior Treatments and Tests None reported formal PT Future Testing and Treatments Planned None reported Treatment Goals Patient/Caregiver Goals 1. Patient would like to strengthen her shoulder to prevent disclocation 2. She wants to get rid of the pain. 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 Current Functional Impairments (Reported) Functional Limitations- ADL's Moderate difficulty in all activities that requires overhead movement, reaching behnd the back Functional Limitations- Work/School Difficulty in all task that requires shoulder rotation and overhead movement Functional Limitations- Recreation/ Unable to participate with Hobbies shoulder fitness exercises in the gym PT-OP-C Subjective Start: 11/12/18 17:28 Freq: Status: Active Protocol: Document 12/30/18 16:45 DCW (Rec: 12/30/18 17:26 DCW [id number]) OP-PT Subjective Patient Comments Patient Comments Pt reports her shoulder is sore in the front today. PT-OP-E Functional Tests Start: 11/12/18 17:28 Freq: Status: Active Protocol: Document 11/12/18 17:35 EA (Rec: 11/13/18 16:35 EA [id number]) Functional Tests Apley's Scratch Test Action 1- Left yes Action 1- Right yes Action 2- Left T4 Action 2- Right C7 Action 3- Left T8 Action 3- Right T12 PT-OP-J Posture/Palpation/Skin Start: 11/12/18 17:28 Freq: Status: Active Protocol: Document 11/12/18 17:35 EA (Rec: 11/13/18 16:35 EA [id number]) Posture Evaluation Comments Posture Comments WFL Palpation Assessment Location One Palpation Location anterior and posterior shoulder Palpation Findings Tenderness Palpation Details Grade 2/4 tenderness over rotaor cuff insertion and post shoulder PT-OP-K Range of Motion Start: 11/12/18 17:28 Freq: Status: Active Protocol: Document 11/12/18 17:35 EA (Rec: 11/13/18 16:35 EA [id number]) Shoulder Goniometric Range of Motion Shoulder Right Active Flexion 160 Abduction 160 External Rotation at 90 degrees 80 Abduction Internal Rotation 50 Left Active Shoulder ROM WFL Yes Shoulder ROM Limitations Shoulder ROM Limitations Pain PT-OP-L Special Tests Start: 11/12/18 17:28 Freq: Status: Active Protocol: Document 11/12/18 17:35 EA (Rec: 11/13/18 16:35 EA [id number]) Special Tests Shoulder Special Tests Clunk Test Test Results - Saavedra Gagandeep Impingement Test Results + Speed's Biceps Test Results - Elevation Impingement Test Results + Lift-Off Rotator Cuff Test Results + PT-OP-M Strength Start: 11/12/18 17:28 Freq: Status: Active Protocol: Document 11/12/18 17:35 EA (Rec: 11/13/18 16:35 EA [id number]) Shoulder Strength Shoulder Manual Muscle Testing Right Flexion 4- Good- Extension 4- Good- Abduction (C5) 4 Good Adduction 4 Good External Rotation 4- Good- Internal Rotation 4- Good- PT-OP-Q Treatments Start: 11/12/18 17:28 Freq: Status: Active Protocol: Document 12/30/18 16:45 DCW (Rec: 12/30/18 17:26 DCW [id number]) Cardio Equipment Upper Body Ergometer (UBE) Duration (Minutes) 5 RPM 60 Seat Position 13 Height 4 Gym Equipment Therapeutic Ball Hughjigna's Exercise Details Prone Hughston's on T-ball Ball Size/Color Green - 65 cm 2# Dumbbells Body Position Prone Reps/Duration x10 Comments I's, Y's, and T's Prone Walk-out Exercise Details Prone Walk-out Ball Size/Color Green - 65 cm Body Position Prone Therapeutic Exercises Standing Exercises Body Blade Standing Exercise Name Body Blade - Flex, Abd, IR Side right Resistance Yellow Other Exercises Wall Clocks Other Exercise Name Wall Clocks Side bilateral Resistance Yellow Equipment Used T-band UE resisted side-stepping Other Exercise Name UE side-stepping Resistance Green Equipment Used T-band Manual Therapy Treatment Soft Tissue Mobilization Supraspinatus Body Location R Supraspinatus Mobilization Type Strumming Sustained Pressure Trigger Point Release Body Position Sitting Upper Trap Body Location R Upper Trap Mobilization Type Strumming Sustained Pressure Body Position Sitting Subscapularis Body Location R Subscap Mobilization Type Strumming Sustained Pressure Body Position Sitting PT-OP-R Modalities Start: 11/14/18 15:14 Freq: Status: Active Protocol: Document 12/30/18 16:45 DCW (Rec: 12/30/18 17:26 DCW [id number]) Electric Stimulation Electric Stimulation Interferential Current (IFC) Body Location Right Shoulder Duration (Minutes) 15 Patient Position Sitting Combined With Heat/Cold Cold Pack PT-OP-T Assessment and Plan Start: 11/12/18 17:28 Freq: Status: Active Protocol: Document 12/30/18 16:45 DCW (Rec: 12/30/18 17:26 DCW [id number]) Physical Therapy Assessment Impairments Impairments Functional Activities Pain ROM Soft Tissue Mobility Strength Goals Three Impairment ROM Assisted Goal (LTG) Patient will reach full shoulder functional ROM to enable patient reach object overehead without difficulty. LTG Duration 4 wks Two Impairment Quick Dash 32 Assisted Goal (LTG) Quick Dash shoulder functional scale of < 15 to improve shoulder function LTG Duration 4 wks One Impairment NO HEP in place Assisted Goal (LTG) Patient will exhibits compliance and independent with HEP LTG Duration 3 wks Assessment Summary Assessment Pt continues to experience fairly substantial pain with most activity, but does admit that it is less painful at rest most of the time. Physical Therapy Plan Frequency and Duration Frequency of Treatment 2x/Week Duration of Treatment 8 wks Plan of Care Start Date 11/12/18 Plan of Care End Date 12/31/18 Therapeutic Interventions Therapeutic Interventions Home Exercise Program Joint Mobilizations Manual Therapy Patient/Caregiver Education Self-Care/Home Management Soft Tissue Mobilization Taping Therapeutic Activities Therapeutic Exercises Modalities Cold Pack/Ice Massage Electric Stimulation Ultrasound Next Visit Focus/Plan Next Note Type Progress Note Next Visit Plan Modalities for pain, HEP, Strengthening
--- NOTE | 2019-01-01 16:42 | PT.OTN ---
Current Diagnoses Pain in right shoulder (01/01/19) Physical Therapy Treatment Note PT-OP-A Visit Information Start: 11/12/18 17:28 Freq: Status: Active Protocol: Document 01/01/19 16:00 DCW (Rec: 01/01/19 16:41 DCW [id number]) Out-Patient Physical Therapy Visit Information Visit Information Visit Type Treatment Note Visit Start Time 16:00 Visit Stop Time 16:50 Total Visit Minutes 50 Visit Number 8 Number of SYSTEMS SOFTWARE ENGINEER Visits 0 Evaluation Information Evaluation Date 11/12/18 PT-OP-B Current Condition Start: 11/12/18 17:28 Freq: Status: Active Protocol: Document 11/12/18 17:35 EA (Rec: 11/13/18 16:35 EA [id number]) Current Condition History of Current Condition Onset Date 2 months ago Current Complaints Right shoulder localized pain and weakness History of Current Condition Patient reports had shoulder dislocation initially when she was in highschool playing volleyball; states multple dislocation since then and last happen few ago while her leaned on her shoulder while her arm was in the backseat. She reports no major treament and relocated her shoulder by herself. She reports that in the past weeks since the injury there was no improvement she has been consistent with ICE and resting it. She noticed mostly symptoms increased right after shoulder exercises in the gym. Prior Treatments and Tests None reported formal PT Future Testing and Treatments Planned None reported Treatment Goals Patient/Caregiver Goals 1. Patient would like to strengthen her shoulder to prevent disclocation 2. She wants to get rid of the pain. 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 Current Functional Impairments (Reported) Functional Limitations- ADL's Moderate difficulty in all activities that requires overhead movement, reaching behnd the back Functional Limitations- Work/School Difficulty in all task that requires shoulder rotation and overhead movement Functional Limitations- Recreation/ Unable to participate with Hobbies shoulder fitness exercises in the gym PT-OP-C Subjective Start: 11/12/18 17:28 Freq: Status: Active Protocol: Document 01/01/19 16:00 DCW (Rec: 01/01/19 16:41 DCW [id number]) OP-PT Subjective Patient Comments Patient Comments Pt reports she had a lot of first day back to the gym-type soreness following Saturday's PT session. PT-OP-E Functional Tests Start: 11/12/18 17:28 Freq: Status: Active Protocol: Document 11/12/18 17:35 EA (Rec: 11/13/18 16:35 EA [id number]) Functional Tests Apley's Scratch Test Action 1- Left yes Action 1- Right yes Action 2- Left T4 Action 2- Right C7 Action 3- Left T8 Action 3- Right T12 PT-OP-J Posture/Palpation/Skin Start: 11/12/18 17:28 Freq: Status: Active Protocol: Document 11/12/18 17:35 EA (Rec: 11/13/18 16:35 EA [id number]) Posture Evaluation Comments Posture Comments WFL Palpation Assessment Location One Palpation Location anterior and posterior shoulder Palpation Findings Tenderness Palpation Details Grade 2/4 tenderness over rotaor cuff insertion and post shoulder PT-OP-K Range of Motion Start: 11/12/18 17:28 Freq: Status: Active Protocol: Document 11/12/18 17:35 EA (Rec: 11/13/18 16:35 EA [id number]) Shoulder Goniometric Range of Motion Shoulder Right Active Flexion 160 Abduction 160 External Rotation at 90 degrees 80 Abduction Internal Rotation 50 Left Active Shoulder ROM WFL Yes Shoulder ROM Limitations Shoulder ROM Limitations Pain PT-OP-L Special Tests Start: 11/12/18 17:28 Freq: Status: Active Protocol: Document 11/12/18 17:35 EA (Rec: 11/13/18 16:35 EA [id number]) Special Tests Shoulder Special Tests Clunk Test Test Results - Saavedra Gagandeep Impingement Test Results + Speed's Biceps Test Results - Elevation Impingement Test Results + Lift-Off Rotator Cuff Test Results + PT-OP-M Strength Start: 11/12/18 17:28 Freq: Status: Active Protocol: Document 11/12/18 17:35 EA (Rec: 11/13/18 16:35 EA [id number]) Shoulder Strength Shoulder Manual Muscle Testing Right Flexion 4- Good- Extension 4- Good- Abduction (C5) 4 Good Adduction 4 Good External Rotation 4- Good- Internal Rotation 4- Good- PT-OP-Q Treatments Start: 11/12/18 17:28 Freq: Status: Active Protocol: Document 01/01/19 16:00 DCW (Rec: 01/01/19 16:41 DCW [id number]) Cardio Equipment Upper Body Ergometer (UBE) Duration (Minutes) 5 RPM 60 Seat Position 13 Height 4 Gym Equipment Therapeutic Ball Jonathan's Exercise Details Prone Hughston's on T-ball Ball Size/Color Green - 65 cm 2# Dumbbells Body Position Prone Reps/Duration x10 Comments I's, Y's, and T's Therapeutic Exercises Standing Exercises Body Blade Standing Exercise Name Body Blade - Flex, Abd, IR Side right Resistance Yellow Other Exercises Wall Clocks Other Exercise Name Wall Clocks Side bilateral Resistance Yellow Equipment Used T-band UE resisted side-stepping Other Exercise Name UE side-stepping Resistance Green Equipment Used T-band Manual Therapy Treatment Soft Tissue Mobilization Supraspinatus Body Location R Supraspinatus Mobilization Type Strumming,Sustained Pressure, Trigger Point Release Body Position Sitting Upper Trap Body Location R Upper Trap Mobilization Type Strumming,Sustained Pressure Body Position Sitting Subscapularis Body Location R Subscap Mobilization Type Strumming,Sustained Pressure Body Position Sitting Taping 1 Body Location Bicipital Tendonitis Taping Type of Tape Kinesio Tape PT-OP-R Modalities Start: 11/14/18 15:14 Freq: Status: Active Protocol: Document 01/01/19 16:00 DCW (Rec: 01/01/19 16:41 DCW [id number]) Electric Stimulation Electric Stimulation Interferential Current (IFC) Body Location Right Shoulder Duration (Minutes) 15 Patient Position Sitting Combined With Heat/Cold Cold Pack PT-OP-T Assessment and Plan Start: 11/12/18 17:28 Freq: Status: Active Protocol: Document 01/01/19 16:00 DCW (Rec: 01/01/19 16:41 DCW [id number]) Physical Therapy Assessment Impairments Impairments Functional Activities,Pain,ROM ,Soft Tissue Mobility,Strength Goals Three Impairment ROM Assistant Purchasing Manager Goal (LTG) Patient will reach full shoulder functional ROM to enable patient reach object overehead without difficulty. LTG Duration 4 wks Two Impairment Quick Dash 32 Assistant Purchasing Manager Goal (LTG) Quick Dash shoulder functional scale of < 15 to improve shoulder function LTG Duration 4 wks One Impairment NO HEP in place Assistant Purchasing Manager Goal (LTG) Patient will exhibits compliance and independent with HEP LTG Duration 3 wks Assessment Summary Assessment Trial of k-tape todat for anterior shoulder/bicipital tendonitis pain. Pt continues to have pain with most shoulder mobilization or STM. If pt does not begin to progress, may benefit from return to PCP for possible imaging. Physical Therapy Plan Frequency and Duration Frequency of Treatment 2x/Week Duration of Treatment 8 wks Plan of Care Start Date 11/12/18 Plan of Care End Date 12/31/18 Therapeutic Interventions Therapeutic Interventions Home Exercise Program,Joint Mobilizations,Manual Therapy, Patient/Caregiver Education, Self-Care/Home Management,Soft Tissue Mobilization,Taping, Therapeutic Activities, Therapeutic Exercises Modalities Cold Pack/Ice Massage,Electric Stimulation,Ultrasound Next Visit Focus/Plan Next Note Type Progress Note Next Visit Plan Modalities for pain, HEP, Strengthening
--- NOTE | 2019-01-01 16:45 | PT.OTN ---
Current Diagnoses Pain in right shoulder (01/01/19) Physical Therapy Treatment Note PT-OP-A Visit Information Start: 11/12/18 17:28 Freq: Status: Active Protocol: Document 01/01/19 16:00 DCW (Rec: 01/01/19 16:41 DCW [id number]) Out-Patient Physical Therapy Visit Information Visit Information Visit Type Treatment Note Visit Start Time 16:00 Visit Stop Time 16:50 Total Visit Minutes 50 Visit Number 8 Number of CLINICAL NURSE MANAGER Visits 0 Evaluation Information Evaluation Date 11/12/18 PT-OP-B Current Condition Start: 11/12/18 17:28 Freq: Status: Active Protocol: Document 11/12/18 17:35 EA (Rec: 11/13/18 16:35 EA [id number]) Current Condition History of Current Condition Onset Date 2 months ago Current Complaints Right shoulder localized pain and weakness History of Current Condition Patient reports had shoulder dislocation initially when she was in highschool playing volleyball; states multple dislocation since then and last happen few ago while her leaned on her shoulder while her arm was in the backseat. She reports no major treament and relocated her shoulder by herself. She reports that in the past weeks since the injury there was no improvement she has been consistent with ICE and resting it. She noticed mostly symptoms increased right after shoulder exercises in the gym. Prior Treatments and Tests None reported formal PT Future Testing and Treatments Planned None reported Treatment Goals Patient/Caregiver Goals 1. Patient would like to strengthen her shoulder to prevent disclocation 2. She wants to get rid of the pain. 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 Current Functional Impairments (Reported) Functional Limitations- ADL's Moderate difficulty in all activities that requires overhead movement, reaching behnd the back Functional Limitations- Work/School Difficulty in all task that requires shoulder rotation and overhead movement Functional Limitations- Recreation/ Unable to participate with Hobbies shoulder fitness exercises in the gym PT-OP-C Subjective Start: 11/12/18 17:28 Freq: Status: Active Protocol: Document 01/01/19 16:00 DCW (Rec: 01/01/19 16:41 DCW [id number]) OP-PT Subjective Patient Comments Patient Comments Pt reports she had a lot of first day back to the gym-type soreness following Saturday's PT session. PT-OP-E Functional Tests Start: 11/12/18 17:28 Freq: Status: Active Protocol: Document 11/12/18 17:35 EA (Rec: 11/13/18 16:35 EA [id number]) Functional Tests Apley's Scratch Test Action 1- Left yes Action 1- Right yes Action 2- Left T4 Action 2- Right C7 Action 3- Left T8 Action 3- Right T12 PT-OP-J Posture/Palpation/Skin Start: 11/12/18 17:28 Freq: Status: Active Protocol: Document 11/12/18 17:35 EA (Rec: 11/13/18 16:35 EA [id number]) Posture Evaluation Comments Posture Comments WFL Palpation Assessment Location One Palpation Location anterior and posterior shoulder Palpation Findings Tenderness Palpation Details Grade 2/4 tenderness over rotaor cuff insertion and post shoulder PT-OP-K Range of Motion Start: 11/12/18 17:28 Freq: Status: Active Protocol: Document 01/01/19 16:00 DCW (Rec: 01/02/19 08:34 DCW [id number]) Shoulder Goniometric Range of Motion Shoulder Right Active Flexion 160 Abduction 160 External Rotation at 90 degrees 80 Abduction Internal Rotation 50 Shoulder ROM Limitations Shoulder ROM Limitations Pain Comments Pt at end-range in all motions PT-OP-L Special Tests Start: 11/12/18 17:28 Freq: Status: Active Protocol: Document 01/01/19 16:00 DCW (Rec: 01/02/19 08:34 DCW [id number]) Special Tests Shoulder Special Tests Clunk Test Test Results Negative Saavedra Gagandeep Impingement Test Results Positive Speed's Biceps Test Results Positive Elevation Impingement Test Results Positive Lift-Off Rotator Cuff Test Results Positive PT-OP-M Strength Start: 11/12/18 17:28 Freq: Status: Active Protocol: Document 11/12/18 17:35 EA (Rec: 11/13/18 16:35 EA [id number]) Shoulder Strength Shoulder Manual Muscle Testing Right Flexion 4- Good- Extension 4- Good- Abduction (C5) 4 Good Adduction 4 Good External Rotation 4- Good- Internal Rotation 4- Good- PT-OP-Q Treatments Start: 11/12/18 17:28 Freq: Status: Active Protocol: Document 01/01/19 16:00 DCW (Rec: 01/01/19 16:41 DCW [id number]) Cardio Equipment Upper Body Ergometer (UBE) Duration (Minutes) 5 RPM 60 Seat Position 13 Height 4 Gym Equipment Therapeutic Ball Hughjigna's Exercise Details Prone Hughston's on T-ball Ball Size/Color Green - 65 cm 2# Dumbbells Body Position Prone Reps/Duration x10 Comments I's, Y's, and T's Therapeutic Exercises Standing Exercises Body Blade Standing Exercise Name Body Blade - Flex, Abd, IR Side right Resistance Yellow Other Exercises Wall Clocks Other Exercise Name Wall Clocks Side bilateral Resistance Yellow Equipment Used T-band UE resisted side-stepping Other Exercise Name UE side-stepping Resistance Green Equipment Used T-band Manual Therapy Treatment Soft Tissue Mobilization Supraspinatus Body Location R Supraspinatus Mobilization Type Strumming,Sustained Pressure, Trigger Point Release Body Position Sitting Upper Trap Body Location R Upper Trap Mobilization Type Strumming,Sustained Pressure Body Position Sitting Subscapularis Body Location R Subscap Mobilization Type Strumming,Sustained Pressure Body Position Sitting Taping 1 Body Location Bicipital Tendonitis Taping Type of Tape Kinesio Tape PT-OP-R Modalities Start: 11/14/18 15:14 Freq: Status: Active Protocol: Document 01/01/19 16:00 DCW (Rec: 01/01/19 16:41 DCW [id number]) Electric Stimulation Electric Stimulation Interferential Current (IFC) Body Location Right Shoulder Duration (Minutes) 15 Patient Position Sitting Combined With Heat/Cold Cold Pack PT-OP-T Assessment and Plan Start: 11/12/18 17:28 Freq: Status: Active Protocol: Document 01/01/19 16:00 DCW (Rec: 01/01/19 16:41 DCW [id number]) Physical Therapy Assessment Impairments Impairments Functional Activities,Pain,ROM ,Soft Tissue Mobility,Strength Goals Three Impairment ROM Assisted Goal (LTG) Patient will reach full shoulder functional ROM to enable patient reach object overehead without difficulty. LTG Duration 4 wks Two Impairment Quick Dash 32 Assisted Goal (LTG) Quick Dash shoulder functional scale of < 15 to improve shoulder function LTG Duration 4 wks One Impairment NO HEP in place Assisted Goal (LTG) Patient will exhibits compliance and independent with HEP LTG Duration 3 wks Assessment Summary Assessment Trial of k-tape today for anterior shoulder/bicipital tendonitis pain. Pt continues to have pain with most shoulder mobilization or STM. If pt does not begin to progress, may benefit from return to PCP for possible imaging. Physical Therapy Plan Frequency and Duration Frequency of Treatment 2x/Week Duration of Treatment 8 wks Plan of Care Start Date 01/01/19 Plan of Care End Date 02/26/19 Therapeutic Interventions Therapeutic Interventions Home Exercise Program,Joint Mobilizations,Manual Therapy, Patient/Caregiver Education, Self-Care/Home Management,Soft Tissue Mobilization,Taping, Therapeutic Activities, Therapeutic Exercises Modalities Cold Pack/Ice Massage,Electric Stimulation,Ultrasound Next Visit Focus/Plan Next Note Type Treatment Note Next Visit Plan Modalities for pain, HEP, Strengthening
--- NOTE | 2019-01-01 16:46 | PT.OPPOC ---
Current Diagnoses Pain in right shoulder (01/01/19) Visit Care Team Role Provider Type No Contreras MD Attending Provider Physician Primary Care Provider Specialty: [facility] Address: [address] [place] [address], [facility], [place], [address] Email: [email or web address] Plan Of Care PT-OP-T Assessment and Plan Start: 11/12/18 17:28 Freq: Status: Active Protocol: Document 01/01/19 16:00 DCW (Rec: 01/01/19 16:41 DCW [id number]) Physical Therapy Assessment Impairments Impairments Functional Activities,Pain,ROM ,Soft Tissue Mobility,Strength Goals Three Impairment ROM Usp Goal (LTG) Patient will reach full shoulder functional ROM to enable patient reach object overehead without difficulty. LTG Duration 4 wks Two Impairment Quick Dash 32 Usp Goal (LTG) Quick Dash shoulder functional scale of < 15 to improve shoulder function LTG Duration 4 wks One Impairment NO HEP in place Usp Goal (LTG) Patient will exhibits compliance and independent with HEP LTG Duration 3 wks Assessment Summary Assessment Trial of k-tape today for anterior shoulder/bicipital tendonitis pain. Pt continues to have pain with most shoulder mobilization or STM. If pt does not begin to progress, may benefit from return to PCP for possible imaging. Physical Therapy Plan Frequency and Duration Frequency of Treatment 2x/Week Duration of Treatment 8 wks Plan of Care Start Date 01/01/19 Plan of Care End Date 02/26/19 Therapeutic Interventions Therapeutic Interventions Home Exercise Program,Joint Mobilizations,Manual Therapy, Patient/Caregiver Education, Self-Care/Home Management,Soft Tissue Mobilization,Taping, Therapeutic Activities, Therapeutic Exercises Modalities Cold Pack/Ice Massage,Electric Stimulation,Ultrasound Next Visit Focus/Plan Next Note Type Treatment Note Next Visit Plan Modalities for pain, HEP, Strengthening Plan of Care Dates Plan of Care Start Date 01/01/19 Plan of Care End Date 02/26/19 Please Sign and Return: I have reviewed this Plan of Care and certify that the skilled therapy services above are required to meet the patient?s needs. Physician Signature Date Printed Name and Credentials Clinical Instructor Signature Printed Name and Credentials
--- NOTE | 2019-01-06 12:22 | PT.OTN ---
Current Diagnoses Pain in right shoulder (01/06/19) Physical Therapy Treatment Note PT-OP-A Visit Information Start: 11/12/18 17:28 Freq: Status: Active Protocol: Document 01/06/19 11:19 SAK (Rec: 01/06/19 12:21 SAK [id number]) Out-Patient Physical Therapy Visit Information Visit Information Visit Type Treatment Note Visit Start Time 11:20 Visit Stop Time 12:08 Total Visit Minutes 48 Visit Number 9 Number of FURNACE ATTENDANT Visits 0 Evaluation Information Evaluation Date 11/12/18 PT-OP-B Current Condition Start: 11/12/18 17:28 Freq: Status: Active Protocol: Document 11/12/18 17:35 EA (Rec: 11/13/18 16:35 EA [id number]) Current Condition History of Current Condition Onset Date 2 months ago Current Complaints Right shoulder localized pain and weakness History of Current Condition Patient reports had shoulder dislocation initially when she was in highschool playing volleyball; states multple dislocation since then and last happen few ago while her leaned on her shoulder while her arm was in the backseat. She reports no major treament and relocated her shoulder by herself. She reports that in the past weeks since the injury there was no improvement she has been consistent with ICE and resting it. She noticed mostly symptoms increased right after shoulder exercises in the gym. Prior Treatments and Tests None reported formal PT Future Testing and Treatments Planned None reported Treatment Goals Patient/Caregiver Goals 1. Patient would like to strengthen her shoulder to prevent disclocation 2. She wants to get rid of the pain. 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 Current Functional Impairments (Reported) Functional Limitations- ADL's Moderate difficulty in all activities that requires overhead movement, reaching behnd the back Functional Limitations- Work/School Difficulty in all task that requires shoulder rotation and overhead movement Functional Limitations- Recreation/ Unable to participate with Hobbies shoulder fitness exercises in the gym PT-OP-C Subjective Start: 11/12/18 17:28 Freq: Status: Active Protocol: Document 01/06/19 11:19 SAK (Rec: 01/06/19 12:21 SAK [id number]) OP-PT Subjective Patient Comments Patient Comments Increased pain today after felt pop while crabbing overweekend; pop but no dislocation. Iced immediately after. Had allergic reaction to the tape, had to remove day 2 though felt like it was helping. PT-OP-E Functional Tests Start: 11/12/18 17:28 Freq: Status: Active Protocol: Document 11/12/18 17:35 EA (Rec: 11/13/18 16:35 EA [id number]) Functional Tests Apley's Scratch Test Action 1- Left yes Action 1- Right yes Action 2- Left T4 Action 2- Right C7 Action 3- Left T8 Action 3- Right T12 PT-OP-J Posture/Palpation/Skin Start: 11/12/18 17:28 Freq: Status: Active Protocol: Document 11/12/18 17:35 EA (Rec: 11/13/18 16:35 EA [id number]) Posture Evaluation Comments Posture Comments WFL Palpation Assessment Location One Palpation Location anterior and posterior shoulder Palpation Findings Tenderness Palpation Details Grade 2/4 tenderness over rotaor cuff insertion and post shoulder PT-OP-K Range of Motion Start: 11/12/18 17:28 Freq: Status: Active Protocol: Document 01/01/19 16:00 DCW (Rec: 01/02/19 08:34 DCW [id number]) Shoulder Goniometric Range of Motion Shoulder Right Active Flexion 160 Abduction 160 External Rotation at 90 degrees 80 Abduction Internal Rotation 50 Shoulder ROM Limitations Shoulder ROM Limitations Pain Comments Pt at end-range in all motions PT-OP-L Special Tests Start: 11/12/18 17:28 Freq: Status: Active Protocol: Document 01/01/19 16:00 DCW (Rec: 01/02/19 08:34 DCW [id number]) Special Tests Shoulder Special Tests Clunk Test Test Results Negative Saavedra Gagandeep Impingement Test Results Positive Speed's Biceps Test Results Positive Elevation Impingement Test Results Positive Lift-Off Rotator Cuff Test Results Positive PT-OP-M Strength Start: 11/12/18 17:28 Freq: Status: Active Protocol: Document 11/12/18 17:35 EA (Rec: 11/13/18 16:35 EA [id number]) Shoulder Strength Shoulder Manual Muscle Testing Right Flexion 4- Good- Extension 4- Good- Abduction (C5) 4 Good Adduction 4 Good External Rotation 4- Good- Internal Rotation 4- Good- PT-OP-Q Treatments Start: 11/12/18 17:28 Freq: Status: Active Protocol: Document 01/06/19 11:19 [facility] (Rec: 01/06/19 12:21 [facility] [id number]) Cardio Equipment Upper Body Ergometer (UBE) Duration (Minutes) 5 RPM 60 Seat Position 13 Height 4 Gym Equipment Therapeutic Ball Hughjigna's Exercise Details Prone Hughston's on T-ball Ball Size/Color Green - 65 cm 2# Dumbbells Body Position Prone Reps/Duration x10 Comments I's, Y's, and T's Therapeutic Exercises Standing Exercises Body Blade Standing Exercise Name Body Blade - Flex, Abd, IR Side right Resistance Yellow Shoulder Extension Standing Exercise Name Extension Side bilateral Resistance Lv 2 Equipment Used T-band Shoulder ER Standing Exercise Name External Rotation Side bilateral Resistance Lv 3 Equipment Used T-band Shoulder IR Standing Exercise Name Internal Rotation Side bilateral Resistance Lv 3 Equipment Used T-band Other Exercises Wall Clocks Other Exercise Name Wall Clocks Side bilateral Resistance Yellow Equipment Used T-band UE resisted side-stepping Other Exercise Name UE side-stepping Resistance Green Equipment Used T-band Manual Therapy Treatment Soft Tissue Mobilization Supraspinatus Body Location R Supraspinatus Mobilization Type Strumming,Sustained Pressure, Trigger Point Release Body Position Sitting Upper Trap Body Location R Upper Trap Mobilization Type Strumming,Sustained Pressure Body Position Sitting Subscapularis Body Location R Subscap Mobilization Type Strumming,Sustained Pressure Body Position Sitting Taping 1 Body Location Bicipital Tendonitis Taping Type of Tape Kinesio Tape Comments tape trial blue tape to determine if dye the issue PT-OP-R Modalities Start: 11/14/18 15:14 Freq: Status: Active Protocol: Document 01/06/19 11:19 [facility] (Rec: 01/06/19 12:21 [facility] [id number]) Electric Stimulation Electric Stimulation Interferential Current (IFC) Body Location Right Shoulder Duration (Minutes) 10 Patient Position Sitting Combined With Heat/Cold Cold Pack Comments 10 min due to time constraints PT-OP-T Assessment and Plan Start: 11/12/18 17:28 Freq: Status: Active Protocol: Document 01/06/19 11:19 [facility] (Rec: 01/06/19 12:21 [facility] [id number]) Physical Therapy Assessment Impairments Impairments Functional Activities,Pain,ROM ,Soft Tissue Mobility,Strength Goals Three Impairment ROM Geological Technician Goal (LTG) Patient will reach full shoulder functional ROM to enable patient reach object overehead without difficulty. LTG Duration 4 wks Two Impairment Quick Dash 32 Assisted Goal (LTG) Quick Dash shoulder functional scale of < 15 to improve shoulder function LTG Duration 4 wks One Impairment NO HEP in place Geological Technician Goal (LTG) Patient will exhibits compliance and independent with HEP LTG Duration 3 wks Assessment Summary Assessment Increased pain after shoulder popped while crabbing over weekend. Mod cues for form, scapular control, and not to push into pain. Physical Therapy Plan Frequency and Duration Frequency of Treatment 2x/Week Duration of Treatment 8 wks Plan of Care Start Date 01/01/19 Plan of Care End Date 02/26/19 Therapeutic Interventions Therapeutic Interventions Home Exercise Program,Joint Mobilizations,Manual Therapy, Patient/Caregiver Education, Self-Care/Home Management,Soft Tissue Mobilization,Taping, Therapeutic Activities, Therapeutic Exercises Modalities Cold Pack/Ice Massage,Electric Stimulation,Ultrasound Next Visit Focus/Plan Next Note Type Progress Note Next Visit Plan assess progress and potential need to refer back to PCP
--- NOTE | 2019-01-09 16:39 | PT.OTN ---
Current Diagnoses Pain in right shoulder (01/09/19) Physical Therapy Treatment Note PT-OP-A Visit Information Start: 11/12/18 17:28 Freq: Status: Active Protocol: Document 01/09/19 14:40 HH (Rec: 01/09/19 16:39 HH [id number]) Out-Patient Physical Therapy Visit Information Visit Information Visit Type Treatment Note Visit Start Time 14:40 Visit Stop Time 15:20 Total Visit Minutes 40 Visit Number 10 Number of ACTUARY MANAGER Visits 0 PT-OP-B Current Condition Start: 11/12/18 17:28 Freq: Status: Active Protocol: Document 11/12/18 17:35 EA (Rec: 11/13/18 16:35 EA [id number]) Current Condition History of Current Condition Onset Date 2 months ago Current Complaints Right shoulder localized pain and weakness History of Current Condition Patient reports had shoulder dislocation initially when she was in highschool playing volleyball; states multple dislocation since then and last happen few ago while her leaned on her shoulder while her arm was in the backseat. She reports no major treament and relocated her shoulder by herself. She reports that in the past weeks since the injury there was no improvement she has been consistent with ICE and resting it. She noticed mostly symptoms increased right after shoulder exercises in the gym. Prior Treatments and Tests None reported formal PT Future Testing and Treatments Planned None reported Treatment Goals Patient/Caregiver Goals 1. Patient would like to strengthen her shoulder to prevent disclocation 2. She wants to get rid of the pain. 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 Current Functional Impairments (Reported) Functional Limitations- ADL's Moderate difficulty in all activities that requires overhead movement, reaching behnd the back Functional Limitations- Work/School Difficulty in all task that requires shoulder rotation and overhead movement Functional Limitations- Recreation/ Unable to participate with Hobbies shoulder fitness exercises in the gym PT-OP-C Subjective Start: 11/12/18 17:28 Freq: Status: Active Protocol: Document 01/09/19 14:40 HH (Rec: 01/09/19 16:39 HH [id number]) OP-PT Subjective Patient Comments Patient Comments Pt dislocated her shd for the first time since IE this morning after her #75 lbs dog jumped on her. Reports of pain 11/12. Patient Reported Progress Worse PT-OP-E Functional Tests Start: 11/12/18 17:28 Freq: Status: Active Protocol: Document 11/12/18 17:35 EA (Rec: 11/13/18 16:35 EA [id number]) Functional Tests Apley's Scratch Test Action 1- Left yes Action 1- Right yes Action 2- Left T4 Action 2- Right C7 Action 3- Left T8 Action 3- Right T12 PT-OP-J Posture/Palpation/Skin Start: 11/12/18 17:28 Freq: Status: Active Protocol: Document 11/12/18 17:35 EA (Rec: 11/13/18 16:35 EA [id number]) Posture Evaluation Comments Posture Comments WFL Palpation Assessment Location One Palpation Location anterior and posterior shoulder Palpation Findings Tenderness Palpation Details Grade 2/4 tenderness over rotaor cuff insertion and post shoulder PT-OP-K Range of Motion Start: 11/12/18 17:28 Freq: Status: Active Protocol: Document 01/01/19 16:00 DCW (Rec: 01/02/19 08:34 DCW [id number]) Shoulder Goniometric Range of Motion Shoulder Right Active Flexion 160 Abduction 160 External Rotation at 90 degrees 80 Abduction Internal Rotation 50 Shoulder ROM Limitations Shoulder ROM Limitations Pain Comments Pt at end-range in all motions PT-OP-L Special Tests Start: 11/12/18 17:28 Freq: Status: Active Protocol: Document 01/01/19 16:00 DCW (Rec: 01/02/19 08:34 DCW [id number]) Special Tests Shoulder Special Tests Clunk Test Test Results Negative Saavedra Gagandeep Impingement Test Results Positive Speed's Biceps Test Results Positive Elevation Impingement Test Results Positive Lift-Off Rotator Cuff Test Results Positive PT-OP-M Strength Start: 11/12/18 17:28 Freq: Status: Active Protocol: Document 11/12/18 17:35 EA (Rec: 11/13/18 16:35 EA [id number]) Shoulder Strength Shoulder Manual Muscle Testing Right Flexion 4- Good- Extension 4- Good- Abduction (C5) 4 Good Adduction 4 Good External Rotation 4- Good- Internal Rotation 4- Good- PT-OP-Q Treatments Start: 11/12/18 17:28 Freq: Status: Active Protocol: Document 01/09/19 14:40 HH (Rec: 01/09/19 16:39 HH [id number]) Therapeutic Exercises Sitting Exercises overhead maurice Sitting Exercise Name shd abduction Side bilateral Reps/Minutes 10 mins Comments with ER Standing Exercises wall climb Standing Exercise Name flexion/ abduction Side bilateral Reps/Minutes 5 mins Manual Therapy Treatment Soft Tissue Mobilization pectoralis major and minor Mobilization Type Cross-Friction,Strumming, Sustained Pressure,Trigger Point Release Intensity/Depth Moderate Body Position Supine Supraspinatus Body Location R Supraspinatus Mobilization Type Strumming,Sustained Pressure, Trigger Point Release Body Position Sitting Upper Trap Body Location R Upper Trap Mobilization Type Strumming,Sustained Pressure Body Position Sitting PT-OP-R Modalities Start: 11/14/18 15:14 Freq: Status: Active Protocol: Document 01/06/19 11:19 SAK (Rec: 01/06/19 12:21 SAK [id number]) Electric Stimulation Electric Stimulation Interferential Current (IFC) Body Location Right Shoulder Duration (Minutes) 10 Patient Position Sitting Combined With Heat/Cold Cold Pack Comments 10 min due to time constraints PT-OP-T Assessment and Plan Start: 11/12/18 17:28 Freq: Status: Active Protocol: Document 01/09/19 14:40 (Rec: 01/09/19 16:39 [email or web address]) Physical Therapy Assessment Goals Three Impairment ROM Long-Term Goal (LTG) Patient will reach full shoulder functional ROM to enable patient reach object overehead without difficulty. LTG Duration 4 wks Two Impairment Quick Dash 32 Ordering Machine Operator Goal (LTG) Quick Dash shoulder functional scale of < 15 to improve shoulder function LTG Duration 4 wks One Impairment NO HEP in place Ordering Machine Operator Goal (LTG) Patient will exhibits compliance and independent with HEP LTG Duration 3 wks Assessment Summary Assessment Pt dislocated her shd for the first time since IE this morning. pain 11/12. Her AROM flexion= 120, fib=937 pre tx session. Focused on manual therapy with MR on pecs and infraspinatus. educated to acquire overhead maurice/ wall climb to perform AROM. Pt was able to reach full range with shd ER, but IR tends to increase pain. Physical Therapy Plan Next Visit Focus/Plan Next Note Type Progress Note Next Visit Plan assess progress and potential need to refer back to PCP
--- NOTE | 2019-01-13 14:28 | PT.OTN ---
Current Diagnoses Pain in right shoulder (01/13/19) Physical Therapy Treatment Note PT-OP-A Visit Information Start: 11/12/18 17:28 Freq: Status: Active Protocol: Document 01/13/19 13:45 DCW (Rec: 01/13/19 14:28 DCW [id number]) Out-Patient Physical Therapy Visit Information Visit Information Visit Type Treatment Note Visit Start Time 13:45 Visit Stop Time 14:40 Total Visit Minutes 55 Visit Number 11 Number of GAS FURNACE INSTALLER Visits 0 Evaluation Information Evaluation Date 11/12/18 PT-OP-B Current Condition Start: 11/12/18 17:28 Freq: Status: Active Protocol: Document 11/12/18 17:35 EA (Rec: 11/13/18 16:35 EA [id number]) Current Condition History of Current Condition Onset Date 2 months ago Current Complaints Right shoulder localized pain and weakness History of Current Condition Patient reports had shoulder dislocation initially when she was in highschool playing volleyball; states multple dislocation since then and last happen few ago while her leaned on her shoulder while her arm was in the backseat. She reports no major treament and relocated her shoulder by herself. She reports that in the past weeks since the injury there was no improvement she has been consistent with ICE and resting it. She noticed mostly symptoms increased right after shoulder exercises in the gym. Prior Treatments and Tests None reported formal PT Future Testing and Treatments Planned None reported Treatment Goals Patient/Caregiver Goals 1. Patient would like to strengthen her shoulder to prevent disclocation 2. She wants to get rid of the pain. 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 Current Functional Impairments (Reported) Functional Limitations- ADL's Moderate difficulty in all activities that requires overhead movement, reaching behnd the back Functional Limitations- Work/School Difficulty in all task that requires shoulder rotation and overhead movement Functional Limitations- Recreation/ Unable to participate with Hobbies shoulder fitness exercises in the gym PT-OP-C Subjective Start: 11/12/18 17:28 Freq: Status: Active Protocol: Document 01/13/19 13:45 DCW (Rec: 01/13/19 14:28 DCW [id number]) OP-PT Subjective Patient Comments Patient Comments Pt reports her shoulder is feeling much better today compared to last week after her dog jumped on her shoulder . Patient Reported Progress Improving PT-OP-E Functional Tests Start: 11/12/18 17:28 Freq: Status: Active Protocol: Document 11/12/18 17:35 EA (Rec: 11/13/18 16:35 EA [id number]) Functional Tests Apley's Scratch Test Action 1- Left yes Action 1- Right yes Action 2- Left T4 Action 2- Right C7 Action 3- Left T8 Action 3- Right T12 PT-OP-J Posture/Palpation/Skin Start: 11/12/18 17:28 Freq: Status: Active Protocol: Document 11/12/18 17:35 EA (Rec: 11/13/18 16:35 EA [id number]) Posture Evaluation Comments Posture Comments WFL Palpation Assessment Location One Palpation Location anterior and posterior shoulder Palpation Findings Tenderness Palpation Details Grade 2/4 tenderness over rotaor cuff insertion and post shoulder PT-OP-K Range of Motion Start: 11/12/18 17:28 Freq: Status: Active Protocol: Document 01/01/19 16:00 DCW (Rec: 01/02/19 08:34 DCW [id number]) Shoulder Goniometric Range of Motion Shoulder Right Active Flexion 160 Abduction 160 External Rotation at 90 degrees 80 Abduction Internal Rotation 50 Shoulder ROM Limitations Shoulder ROM Limitations Pain Comments Pt at end-range in all motions PT-OP-L Special Tests Start: 11/12/18 17:28 Freq: Status: Active Protocol: Document 01/01/19 16:00 DCW (Rec: 01/02/19 08:34 DCW [id number]) Special Tests Shoulder Special Tests Clunk Test Test Results Negative Saavedra Gagandeep Impingement Test Results Positive Speed's Biceps Test Results Positive Elevation Impingement Test Results Positive Lift-Off Rotator Cuff Test Results Positive PT-OP-M Strength Start: 11/12/18 17:28 Freq: Status: Active Protocol: Document 11/12/18 17:35 EA (Rec: 11/13/18 16:35 EA [id number]) Shoulder Strength Shoulder Manual Muscle Testing Right Flexion 4- Good- Extension 4- Good- Abduction (C5) 4 Good Adduction 4 Good External Rotation 4- Good- Internal Rotation 4- Good- PT-OP-Q Treatments Start: 11/12/18 17:28 Freq: Status: Active Protocol: Document 01/13/19 13:45 DCW (Rec: 01/13/19 14:28 DCW [id number]) Cardio Equipment Upper Body Ergometer (UBE) Duration (Minutes) 5 RPM 60 Seat Position 11 Height 4 Gym Equipment Therapeutic Ball Hughjigna's Exercise Details Prone Hughston's on T-ball Ball Size/Color Green - 65 cm 3# Dumbbells Body Position Prone Reps/Duration x10 Comments I's, Y's, and T's Therapeutic Exercises Standing Exercises Body Blade Standing Exercise Name Body Blade - Flex, Abd, IR Side right Resistance Yellow Other Exercises Wall Clocks Other Exercise Name Wall Clocks Side bilateral Resistance Yellow Equipment Used T-band UE resisted side-stepping Other Exercise Name UE side-stepping Resistance Green Equipment Used T-band Manual Therapy Treatment Soft Tissue Mobilization pectoralis major and minor Mobilization Type Cross-Friction,Strumming, Sustained Pressure,Trigger Point Release Intensity/Depth Moderate Body Position Supine Supraspinatus Body Location R Supraspinatus Mobilization Type Strumming,Sustained Pressure, Trigger Point Release Body Position Sitting Upper Trap Body Location R Upper Trap Mobilization Type Strumming,Sustained Pressure Body Position Sitting Taping 1 Body Location Bicipital Tendonitis Taping Type of Tape Kinesio Tape PT-OP-R Modalities Start: 11/14/18 15:14 Freq: Status: Active Protocol: Document 01/13/19 13:45 DCW (Rec: 01/13/19 14:28 DCW [id number]) Electric Stimulation Electric Stimulation Interferential Current (IFC) Body Location Right Shoulder Duration (Minutes) 15 Patient Position Sitting Combined With Heat/Cold Cold Pack PT-OP-T Assessment and Plan Start: 11/12/18 17:28 Freq: Status: Active Protocol: Document 01/13/19 13:45 DCW (Rec: 01/13/19 14:28 DCW [id number]) Physical Therapy Assessment Goals Three Impairment ROM Custodial Goal (LTG) Patient will reach full shoulder functional ROM to enable patient reach object overhead without difficulty. LTG Duration 4 wks Two Impairment Quick Dash 32 Cloth Shearer Goal (LTG) Quick Dash shoulder functional scale of < 15 to improve shoulder function LTG Duration 4 wks One Impairment NO HEP in place Custodial Goal (LTG) Patient will exhibits compliance and independent with HEP LTG Duration 3 wks Assessment Summary Assessment Pt much better today, mobility improved, pain declined, no further increased complaints after her dislocation last week. Physical Therapy Plan Frequency and Duration Frequency of Treatment 2x/Week Duration of Treatment 8 wks Plan of Care Start Date 01/01/19 Plan of Care End Date 02/26/19 Therapeutic Interventions Therapeutic Interventions Home Exercise Program,Joint Mobilizations,Manual Therapy, Patient/Caregiver Education, Self-Care/Home Management,Soft Tissue Mobilization,Taping, Therapeutic Activities, Therapeutic Exercises Modalities Cold Pack/Ice Massage,Electric Stimulation,Ultrasound Next Visit Focus/Plan Next Note Type Treatment Note Next Visit Plan assess progress and potential need to refer back to PCP
--- NOTE | 2019-01-15 14:21 | PT.OTN ---
Current Diagnoses Pain in right shoulder (01/15/19) Physical Therapy Treatment Note PT-OP-A Visit Information Start: 11/12/18 17:28 Freq: Status: Active Protocol: Document 01/15/19 13:45 DCW (Rec: 01/15/19 14:21 DCW [id number]) Out-Patient Physical Therapy Visit Information Visit Information Visit Type Treatment Note Visit Start Time 13:45 Visit Stop Time 14:35 Total Visit Minutes 50 Visit Number 12 Number of ROTARY SOIL STABILIZER Visits 0 Evaluation Information Evaluation Date 11/12/18 PT-OP-B Current Condition Start: 11/12/18 17:28 Freq: Status: Active Protocol: Document 11/12/18 17:35 EA (Rec: 11/13/18 16:35 EA [id number]) Current Condition History of Current Condition Onset Date 2 months ago Current Complaints Right shoulder localized pain and weakness History of Current Condition Patient reports had shoulder dislocation initially when she was in highschool playing volleyball; states multple dislocation since then and last happen few ago while her leaned on her shoulder while her arm was in the backseat. She reports no major treament and relocated her shoulder by herself. She reports that in the past weeks since the injury there was no improvement she has been consistent with ICE and resting it. She noticed mostly symptoms increased right after shoulder exercises in the gym. Prior Treatments and Tests None reported formal PT Future Testing and Treatments Planned None reported Treatment Goals Patient/Caregiver Goals 1. Patient would like to strengthen her shoulder to prevent disclocation 2. She wants to get rid of the pain. 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 Current Functional Impairments (Reported) Functional Limitations- ADL's Moderate difficulty in all activities that requires overhead movement, reaching behnd the back Functional Limitations- Work/School Difficulty in all task that requires shoulder rotation and overhead movement Functional Limitations- Recreation/ Unable to participate with Hobbies shoulder fitness exercises in the gym PT-OP-C Subjective Start: 11/12/18 17:28 Freq: Status: Active Protocol: Document 01/15/19 13:45 DCW (Rec: 01/15/19 14:21 DCW [id number]) OP-PT Subjective Patient Comments Patient Comments Pt had a sharp pain in her shoulder this morning which traveled down her arm and made her fingers numb lasting for ~45 minutes, however, she reports she is now feeling fairly normal. PT-OP-E Functional Tests Start: 11/12/18 17:28 Freq: Status: Active Protocol: Document 11/12/18 17:35 EA (Rec: 11/13/18 16:35 EA [id number]) Functional Tests Apley's Scratch Test Action 1- Left yes Action 1- Right yes Action 2- Left T4 Action 2- Right C7 Action 3- Left T8 Action 3- Right T12 PT-OP-J Posture/Palpation/Skin Start: 11/12/18 17:28 Freq: Status: Active Protocol: Document 11/12/18 17:35 EA (Rec: 11/13/18 16:35 EA [id number]) Posture Evaluation Comments Posture Comments WFL Palpation Assessment Location One Palpation Location anterior and posterior shoulder Palpation Findings Tenderness Palpation Details Grade 2/4 tenderness over rotaor cuff insertion and post shoulder PT-OP-K Range of Motion Start: 11/12/18 17:28 Freq: Status: Active Protocol: Document 01/01/19 16:00 DCW (Rec: 01/02/19 08:34 DCW [id number]) Shoulder Goniometric Range of Motion Shoulder Right Active Flexion 160 Abduction 160 External Rotation at 90 degrees 80 Abduction Internal Rotation 50 Shoulder ROM Limitations Shoulder ROM Limitations Pain Comments Pt at end-range in all motions PT-OP-L Special Tests Start: 11/12/18 17:28 Freq: Status: Active Protocol: Document 01/01/19 16:00 DCW (Rec: 01/02/19 08:34 DCW [id number]) Special Tests Shoulder Special Tests Clunk Test Test Results Negative Saavedra Gagandeep Impingement Test Results Positive Speed's Biceps Test Results Positive Elevation Impingement Test Results Positive Lift-Off Rotator Cuff Test Results Positive PT-OP-M Strength Start: 11/12/18 17:28 Freq: Status: Active Protocol: Document 11/12/18 17:35 EA (Rec: 11/13/18 16:35 EA [id number]) Shoulder Strength Shoulder Manual Muscle Testing Right Flexion 4- Good- Extension 4- Good- Abduction (C5) 4 Good Adduction 4 Good External Rotation 4- Good- Internal Rotation 4- Good- PT-OP-Q Treatments Start: 11/12/18 17:28 Freq: Status: Active Protocol: Document 01/15/19 13:45 DCW (Rec: 01/15/19 14:21 DCW [id number]) Cardio Equipment Upper Body Ergometer (UBE) Duration (Minutes) 5 RPM 60 Seat Position 11 Height 4 Gym Equipment Therapeutic Ball Stability Exercise Details Isometric Stability vs Perturbation Ball Size/Color Blue - 45 cm Body Position Supine Hughston's Exercise Details Prone Hughston's on T-ball Ball Size/Color Green - 65 cm 3# Dumbbells Body Position Prone Reps/Duration x10 Comments I's, Y's, and T's Therapeutic Exercises Supine Exercises Horizontal Adduction Supine Exercise Name Horizontal Adduction Side bilateral Resistance 3# Reps/Minutes x10 Serratus Punch Supine Exercise Name Serratus Punch Side bilateral Resistance 3# Reps/Minutes x20 Standing Exercises Body Blade Standing Exercise Name Body Blade - Flex, Abd, IR Side right Resistance Yellow Other Exercises Wall Clocks Other Exercise Name Wall Clocks Side bilateral Resistance Yellow Equipment Used T-band UE resisted side-stepping Other Exercise Name UE side-stepping Resistance Green Equipment Used T-band PT-OP-R Modalities Start: 11/14/18 15:14 Freq: Status: Active Protocol: Document 01/15/19 13:45 DCW (Rec: 01/15/19 14:21 DCW [id number]) Electric Stimulation Electric Stimulation Interferential Current (IFC) Body Location Right Shoulder Duration (Minutes) 15 Patient Position Sitting Combined With Heat/Cold Cold Pack PT-OP-T Assessment and Plan Start: 11/12/18 17:28 Freq: Status: Active Protocol: Document 01/15/19 13:45 DCW (Rec: 01/15/19 14:21 DCW [id number]) Physical Therapy Assessment Goals Three Impairment ROM Sandwich Board Carrier Goal (LTG) Patient will reach full shoulder functional ROM to enable patient reach object overehead without difficulty. LTG Duration 4 wks Two Impairment Quick Dash 32 Retirement Goal (LTG) Quick Dash shoulder functional scale of < 15 to improve shoulder function LTG Duration 4 wks One Impairment NO HEP in place Sandwich Board Carrier Goal (LTG) Patient will exhibits compliance and independent with HEP LTG Duration 3 wks Assessment Summary Assessment Pt able to tolerate new activities today, however overall making minimal progress recently, although this may be due to her recent dislocation Physical Therapy Plan Frequency and Duration Frequency of Treatment 2x/Week Duration of Treatment 8 wks Plan of Care Start Date 01/01/19 Plan of Care End Date 02/26/19 Therapeutic Interventions Therapeutic Interventions Home Exercise Program,Joint Mobilizations,Manual Therapy, Patient/Caregiver Education, Self-Care/Home Management,Soft Tissue Mobilization,Taping, Therapeutic Activities, Therapeutic Exercises Modalities Cold Pack/Ice Massage,Electric Stimulation,Ultrasound Next Visit Focus/Plan Next Note Type Treatment Note Next Visit Plan assess progress and potential need to refer back to PCP
--- NOTE | 2019-01-20 17:28 | PT.OTN ---
Current Diagnoses Pain in right shoulder (01/20/19) Physical Therapy Treatment Note PT-OP-A Visit Information Start: 11/12/18 17:28 Freq: Status: Active Protocol: Document 01/20/19 16:45 DCW (Rec: 01/20/19 17:28 DCW [id number]) Out-Patient Physical Therapy Visit Information Visit Information Visit Type Treatment Note Visit Start Time 16:45 Visit Stop Time 17:35 Total Visit Minutes 50 Visit Number 13 Number of OPTICAL BRIGHTENER MAKER HELPER Visits 0 Evaluation Information Evaluation Date 11/12/18 PT-OP-B Current Condition Start: 11/12/18 17:28 Freq: Status: Active Protocol: Document 11/12/18 17:35 EA (Rec: 11/13/18 16:35 EA [id number]) Current Condition History of Current Condition Onset Date 2 months ago Current Complaints Right shoulder localized pain and weakness History of Current Condition Patient reports had shoulder dislocation initially when she was in highschool playing volleyball; states multple dislocation since then and last happen few ago while her leaned on her shoulder while her arm was in the backseat. She reports no major treament and relocated her shoulder by herself. She reports that in the past weeks since the injury there was no improvement she has been consistent with ICE and resting it. She noticed mostly symptoms increased right after shoulder exercises in the gym. Prior Treatments and Tests None reported formal PT Future Testing and Treatments Planned None reported Treatment Goals Patient/Caregiver Goals 1. Patient would like to strengthen her shoulder to prevent disclocation 2. She wants to get rid of the pain. 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 Current Functional Impairments (Reported) Functional Limitations- ADL's Moderate difficulty in all activities that requires overhead movement, reaching behnd the back Functional Limitations- Work/School Difficulty in all task that requires shoulder rotation and overhead movement Functional Limitations- Recreation/ Unable to participate with Hobbies shoulder fitness exercises in the gym PT-OP-C Subjective Start: 11/12/18 17:28 Freq: Status: Active Protocol: Document 01/20/19 16:45 DCW (Rec: 01/20/19 17:28 DCW [id number]) OP-PT Subjective Patient Comments Patient Comments Pt notes her shoulder has been crackling, and that it hasn't been grinding, but it just feels like it has been rubbing wrong. Reports that this all pretty much began after her K-tape fell off on Saturday. PT-OP-E Functional Tests Start: 11/12/18 17:28 Freq: Status: Active Protocol: Document 11/12/18 17:35 EA (Rec: 11/13/18 16:35 EA [id number]) Functional Tests Apley's Scratch Test Action 1- Left yes Action 1- Right yes Action 2- Left T4 Action 2- Right C7 Action 3- Left T8 Action 3- Right T12 PT-OP-J Posture/Palpation/Skin Start: 11/12/18 17:28 Freq: Status: Active Protocol: Document 11/12/18 17:35 EA (Rec: 11/13/18 16:35 EA [id number]) Posture Evaluation Comments Posture Comments WFL Palpation Assessment Location One Palpation Location anterior and posterior shoulder Palpation Findings Tenderness Palpation Details Grade 2/4 tenderness over rotaor cuff insertion and post shoulder PT-OP-K Range of Motion Start: 11/12/18 17:28 Freq: Status: Active Protocol: Document 01/01/19 16:00 DCW (Rec: 01/02/19 08:34 DCW [id number]) Shoulder Goniometric Range of Motion Shoulder Right Active Flexion 160 Abduction 160 External Rotation at 90 degrees 80 Abduction Internal Rotation 50 Shoulder ROM Limitations Shoulder ROM Limitations Pain Comments Pt at end-range in all motions PT-OP-L Special Tests Start: 11/12/18 17:28 Freq: Status: Active Protocol: Document 01/01/19 16:00 DCW (Rec: 01/02/19 08:34 DCW [id number]) Special Tests Shoulder Special Tests Clunk Test Test Results Negative Saavedra Gagandeep Impingement Test Results Positive Speed's Biceps Test Results Positive Elevation Impingement Test Results Positive Lift-Off Rotator Cuff Test Results Positive PT-OP-M Strength Start: 11/12/18 17:28 Freq: Status: Active Protocol: Document 11/12/18 17:35 EA (Rec: 11/13/18 16:35 EA [id number]) Shoulder Strength Shoulder Manual Muscle Testing Right Flexion 4- Good- Extension 4- Good- Abduction (C5) 4 Good Adduction 4 Good External Rotation 4- Good- Internal Rotation 4- Good- PT-OP-Q Treatments Start: 11/12/18 17:28 Freq: Status: Active Protocol: Document 01/20/19 16:45 DCW (Rec: 01/20/19 17:28 DCW [id number]) Cardio Equipment Upper Body Ergometer (UBE) Duration (Minutes) 5 RPM 60 Seat Position 11 Height 4 Gym Equipment Therapeutic Ball Hughston's Exercise Details Prone Hughston's on T-ball Ball Size/Color Green - 65 cm 3# Dumbbells Body Position Prone Reps/Duration x10 Comments I's, Y's, and T's Therapeutic Exercises Supine Exercises Horizontal Adduction Supine Exercise Name Horizontal Adduction Side bilateral Resistance 3# Reps/Minutes x10 Serratus Punch Supine Exercise Name Serratus Punch Side bilateral Resistance 3# Reps/Minutes x20 Standing Exercises Body Blade Standing Exercise Name Body Blade - Flex, Abd, IR Side right Resistance Yellow Other Exercises Wall Clocks Other Exercise Name Wall Clocks Side bilateral Resistance Yellow Equipment Used T-band UE resisted side-stepping Other Exercise Name UE side-stepping Resistance Green Equipment Used T-band Manual Therapy Treatment Taping 1 Body Location Bicipital Tendonitis Taping Type of Tape Kinesio Tape PT-OP-R Modalities Start: 11/14/18 15:14 Freq: Status: Active Protocol: Document 01/20/19 16:45 DCW (Rec: 01/20/19 17:28 DCW [id number]) Electric Stimulation Electric Stimulation Interferential Current (IFC) Body Location Right Shoulder Duration (Minutes) 15 Patient Position Sitting Combined With Heat/Cold Cold Pack PT-OP-T Assessment and Plan Start: 11/12/18 17:28 Freq: Status: Active Protocol: Document 01/20/19 16:45 DCW (Rec: 01/20/19 17:28 DCW [id number]) Physical Therapy Assessment Goals Three Impairment ROM Residential Goal (LTG) Patient will reach full shoulder functional ROM to enable patient reach object overehead without difficulty. LTG Duration 4 wks Two Impairment Quick Dash 32 Residential Goal (LTG) Quick Dash shoulder functional scale of < 15 to improve shoulder function LTG Duration 4 wks One Impairment NO HEP in place Microbiology Lab Technician Goal (LTG) Patient will exhibits compliance and independent with HEP LTG Duration 3 wks Assessment Summary Assessment Pt showing improvement today, less pain with mobility today vs last week, when she was still recovering from her dislocation Physical Therapy Plan Frequency and Duration Frequency of Treatment 2x/Week Duration of Treatment 8 wks Plan of Care Start Date 01/01/19 Plan of Care End Date 02/26/19 Therapeutic Interventions Therapeutic Interventions Home Exercise Program,Joint Mobilizations,Manual Therapy, Patient/Caregiver Education, Self-Care/Home Management,Soft Tissue Mobilization,Taping, Therapeutic Activities, Therapeutic Exercises Modalities Cold Pack/Ice Massage,Electric Stimulation,Ultrasound Next Visit Focus/Plan Next Note Type Treatment Note Next Visit Plan assess progress and potential need to refer back to PCP
--- NOTE | 2019-01-23 15:57 | PT.OTN ---
Current Diagnoses Pain in right shoulder (01/23/19) Physical Therapy Treatment Note PT-OP-A Visit Information Start: 11/12/18 17:28 Freq: Status: Active Protocol: Document 01/23/19 15:15 DCW (Rec: 01/23/19 15:55 DCW [id number]) Out-Patient Physical Therapy Visit Information Visit Information Visit Type Treatment Note Visit Start Time 15:15 Visit Stop Time 16:10 Total Visit Minutes 55 Visit Number 14 Number of MIDDLE SCHOOL BASEBALL COACH Visits 0 Evaluation Information Evaluation Date 11/12/18 PT-OP-B Current Condition Start: 11/12/18 17:28 Freq: Status: Active Protocol: Document 11/12/18 17:35 EA (Rec: 11/13/18 16:35 EA [id number]) Current Condition History of Current Condition Onset Date 2 months ago Current Complaints Right shoulder localized pain and weakness History of Current Condition Patient reports had shoulder dislocation initially when she was in highschool playing volleyball; states multple dislocation since then and last happen few ago while her leaned on her shoulder while her arm was in the backseat. She reports no major treament and relocated her shoulder by herself. She reports that in the past weeks since the injury there was no improvement she has been consistent with ICE and resting it. She noticed mostly symptoms increased right after shoulder exercises in the gym. Prior Treatments and Tests None reported formal PT Future Testing and Treatments Planned None reported Treatment Goals Patient/Caregiver Goals 1. Patient would like to strengthen her shoulder to prevent disclocation 2. She wants to get rid of the pain. 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 Current Functional Impairments (Reported) Functional Limitations- ADL's Moderate difficulty in all activities that requires overhead movement, reaching behnd the back Functional Limitations- Work/School Difficulty in all task that requires shoulder rotation and overhead movement Functional Limitations- Recreation/ Unable to participate with Hobbies shoulder fitness exercises in the gym PT-OP-C Subjective Start: 11/12/18 17:28 Freq: Status: Active Protocol: Document 01/23/19 15:15 DCW (Rec: 01/23/19 15:55 DCW [id number]) OP-PT Subjective Patient Comments Patient Comments Notes her shoulder has been alright, admits that it has been popping and cracking much less frequently, only once last night, and that's because I woke up laying on it . PT-OP-E Functional Tests Start: 11/12/18 17:28 Freq: Status: Active Protocol: Document 11/12/18 17:35 EA (Rec: 11/13/18 16:35 EA [id number]) Functional Tests Apley's Scratch Test Action 1- Left yes Action 1- Right yes Action 2- Left T4 Action 2- Right C7 Action 3- Left T8 Action 3- Right T12 PT-OP-J Posture/Palpation/Skin Start: 11/12/18 17:28 Freq: Status: Active Protocol: Document 11/12/18 17:35 EA (Rec: 11/13/18 16:35 EA [id number]) Posture Evaluation Comments Posture Comments WFL Palpation Assessment Location One Palpation Location anterior and posterior shoulder Palpation Findings Tenderness Palpation Details Grade 2/4 tenderness over rotaor cuff insertion and post shoulder PT-OP-K Range of Motion Start: 11/12/18 17:28 Freq: Status: Active Protocol: Document 01/01/19 16:00 DCW (Rec: 01/02/19 08:34 DCW [id number]) Shoulder Goniometric Range of Motion Shoulder Right Active Flexion 160 Abduction 160 External Rotation at 90 degrees 80 Abduction Internal Rotation 50 Shoulder ROM Limitations Shoulder ROM Limitations Pain Comments Pt at end-range in all motions PT-OP-L Special Tests Start: 11/12/18 17:28 Freq: Status: Active Protocol: Document 01/01/19 16:00 DCW (Rec: 01/02/19 08:34 DCW [id number]) Special Tests Shoulder Special Tests Clunk Test Test Results Negative Saavedra Gagandeep Impingement Test Results Positive Speed's Biceps Test Results Positive Elevation Impingement Test Results Positive Lift-Off Rotator Cuff Test Results Positive PT-OP-M Strength Start: 11/12/18 17:28 Freq: Status: Active Protocol: Document 11/12/18 17:35 EA (Rec: 11/13/18 16:35 EA [id number]) Shoulder Strength Shoulder Manual Muscle Testing Right Flexion 4- Good- Extension 4- Good- Abduction (C5) 4 Good Adduction 4 Good External Rotation 4- Good- Internal Rotation 4- Good- PT-OP-Q Treatments Start: 11/12/18 17:28 Freq: Status: Active Protocol: Document 01/23/19 15:15 DCW (Rec: 01/23/19 15:55 DCW [id number]) Cardio Equipment Upper Body Ergometer (UBE) Duration (Minutes) 5 RPM 60 Seat Position 11 Height 4 Gym Equipment Therapeutic Ball Stability Exercise Details Isometric Stability vs Perturbation Ball Size/Color Blue - 45 cm Body Position Supine Hughston's Exercise Details Prone Hughston's on T-ball Ball Size/Color Green - 65 cm 3# Dumbbells Body Position Prone Reps/Duration x10 Comments I's, Y's, and T's Therapeutic Exercises Standing Exercises Body Blade Standing Exercise Name Body Blade - Flex, Abd, IR Side right Resistance Yellow Other Exercises Wall Clocks Other Exercise Name Wall Clocks Side bilateral Resistance Yellow Equipment Used T-band UE resisted side-stepping Other Exercise Name UE side-stepping Resistance Green Equipment Used T-band Manual Therapy Treatment Soft Tissue Mobilization Supraspinatus Body Location R Supraspinatus Mobilization Type Strumming,Sustained Pressure, Trigger Point Release Body Position Sitting Upper Trap Body Location R Upper Trap Mobilization Type Strumming,Sustained Pressure Body Position Sitting Subscapularis Body Location R Subscap Mobilization Type Strumming,Sustained Pressure Body Position Sitting PT-OP-R Modalities Start: 11/14/18 15:14 Freq: Status: Active Protocol: Document 01/23/19 15:15 DCW (Rec: 01/23/19 15:55 DCW [id number]) Electric Stimulation Electric Stimulation Interferential Current (IFC) Body Location Right Shoulder Duration (Minutes) 15 Patient Position Sitting Combined With Heat/Cold Cold Pack PT-OP-T Assessment and Plan Start: 11/12/18 17:28 Freq: Status: Active Protocol: Document 01/23/19 15:15 DCW (Rec: 01/23/19 15:57 DCW [id number]) Physical Therapy Assessment Goals Three Impairment ROM Fdc Goal (LTG) Patient will reach full shoulder functional ROM to enable patient reach object overehead without difficulty. LTG Duration 4 wks Two Impairment Quick Dash 32 Fdc Goal (LTG) Quick Dash shoulder functional scale of < 15 to improve shoulder function LTG Duration 4 wks One Impairment NO HEP in place Wallpaper Inspector Goal (LTG) Patient will exhibits compliance and independent with HEP LTG Duration 3 wks Assessment Summary Assessment Pt having less popping recently. Pt will ikely be returning to PCP in the upcoming weeks, would recommend imaging to determine severity of impairment. Physical Therapy Plan Frequency and Duration Frequency of Treatment 2x/Week Duration of Treatment 8 wks Plan of Care Start Date 01/01/19 Plan of Care End Date 02/26/19 Therapeutic Interventions Therapeutic Interventions Home Exercise Program,Joint Mobilizations,Manual Therapy, Patient/Caregiver Education, Self-Care/Home Management,Soft Tissue Mobilization,Taping, Therapeutic Activities, Therapeutic Exercises Modalities Cold Pack/Ice Massage,Electric Stimulation,Ultrasound Next Visit Focus/Plan Next Note Type Treatment Note Next Visit Plan assess progress and potential need to refer back to PCP
--- NOTE | 2019-01-27 16:39 | PT.OTN ---
Current Diagnoses Pain in right shoulder (01/27/19) Physical Therapy Treatment Note PT-OP-A Visit Information Start: 11/12/18 17:28 Freq: Status: Active Protocol: Document 01/27/19 16:00 DCW (Rec: 01/27/19 16:37 DCW [id number]) Out-Patient Physical Therapy Visit Information Visit Information Visit Type Treatment Note Visit Start Time 16:00 Visit Stop Time 16:50 Total Visit Minutes 55 Visit Number 15 Number of TANK PROCESSOR Visits 0 Evaluation Information Evaluation Date 11/12/18 PT-OP-B Current Condition Start: 11/12/18 17:28 Freq: Status: Active Protocol: Document 11/12/18 17:35 EA (Rec: 11/13/18 16:35 EA [id number]) Current Condition History of Current Condition Onset Date 2 months ago Current Complaints Right shoulder localized pain and weakness History of Current Condition Patient reports had shoulder dislocation initially when she was in highschool playing volleyball; states multple dislocation since then and last happen few ago while her leaned on her shoulder while her arm was in the backseat. She reports no major treament and relocated her shoulder by herself. She reports that in the past weeks since the injury there was no improvement she has been consistent with ICE and resting it. She noticed mostly symptoms increased right after shoulder exercises in the gym. Prior Treatments and Tests None reported formal PT Future Testing and Treatments Planned None reported Treatment Goals Patient/Caregiver Goals 1. Patient would like to strengthen her shoulder to prevent disclocation 2. She wants to get rid of the pain. 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 Current Functional Impairments (Reported) Functional Limitations- ADL's Moderate difficulty in all activities that requires overhead movement, reaching behnd the back Functional Limitations- Work/School Difficulty in all task that requires shoulder rotation and overhead movement Functional Limitations- Recreation/ Unable to participate with Hobbies shoulder fitness exercises in the gym PT-OP-C Subjective Start: 11/12/18 17:28 Freq: Status: Active Protocol: Document 01/27/19 16:00 DCW (Rec: 01/27/19 16:37 DCW [id number]) OP-PT Subjective Patient Comments Patient Comments Pt reports that she is doing better today than she had been last week. PT-OP-E Functional Tests Start: 11/12/18 17:28 Freq: Status: Active Protocol: Document 11/12/18 17:35 EA (Rec: 11/13/18 16:35 EA [id number]) Functional Tests Apley's Scratch Test Action 1- Left yes Action 1- Right yes Action 2- Left T4 Action 2- Right C7 Action 3- Left T8 Action 3- Right T12 PT-OP-J Posture/Palpation/Skin Start: 11/12/18 17:28 Freq: Status: Active Protocol: Document 11/12/18 17:35 EA (Rec: 11/13/18 16:35 EA [id number]) Posture Evaluation Comments Posture Comments WFL Palpation Assessment Location One Palpation Location anterior and posterior shoulder Palpation Findings Tenderness Palpation Details Grade 2/4 tenderness over rotaor cuff insertion and post shoulder PT-OP-K Range of Motion Start: 11/12/18 17:28 Freq: Status: Active Protocol: Document 01/01/19 16:00 DCW (Rec: 01/02/19 08:34 DCW [id number]) Shoulder Goniometric Range of Motion Shoulder Right Active Flexion 160 Abduction 160 External Rotation at 90 degrees 80 Abduction Internal Rotation 50 Shoulder ROM Limitations Shoulder ROM Limitations Pain Comments Pt at end-range in all motions PT-OP-L Special Tests Start: 11/12/18 17:28 Freq: Status: Active Protocol: Document 01/01/19 16:00 DCW (Rec: 01/02/19 08:34 DCW [id number]) Special Tests Shoulder Special Tests Clunk Test Test Results Negative Saavedra Gagandeep Impingement Test Results Positive Speed's Biceps Test Results Positive Elevation Impingement Test Results Positive Lift-Off Rotator Cuff Test Results Positive PT-OP-M Strength Start: 11/12/18 17:28 Freq: Status: Active Protocol: Document 11/12/18 17:35 EA (Rec: 11/13/18 16:35 EA [id number]) Shoulder Strength Shoulder Manual Muscle Testing Right Flexion 4- Good- Extension 4- Good- Abduction (C5) 4 Good Adduction 4 Good External Rotation 4- Good- Internal Rotation 4- Good- PT-OP-Q Treatments Start: 11/12/18 17:28 Freq: Status: Active Protocol: Document 01/27/19 16:00 DCW (Rec: 01/27/19 16:37 DCW [id number]) Cardio Equipment Upper Body Ergometer (UBE) Duration (Minutes) 5 RPM 60 Seat Position 11 Height 4 Gym Equipment Cable Column (Body Solid) Lat Pull Down Resistance 30# Reps/Time x15 Therapeutic Ball Stability Exercise Details Isometric Stability vs Perturbation Ball Size/Color Blue - 45 cm Body Position Supine Hughston's Exercise Details Prone Hughston's on T-ball Ball Size/Color Green - 65 cm 4# Dumbbells Body Position Prone Reps/Duration x10 Comments I's, Y's, and T's Therapeutic Exercises Supine Exercises Horizontal Adduction Supine Exercise Name Horizontal Adduction Side bilateral Resistance 3# Reps/Minutes x10 Serratus Punch Supine Exercise Name Serratus Punch Side bilateral Resistance 3# Reps/Minutes x20 Standing Exercises Body Blade Standing Exercise Name Body Blade - Flex, Abd, IR Side right Resistance Yellow PT-OP-R Modalities Start: 11/14/18 15:14 Freq: Status: Active Protocol: Document 01/27/19 16:00 DCW (Rec: 01/27/19 16:39 DCW [id number]) Electric Stimulation Electric Stimulation Interferential Current (IFC) Body Location Right Shoulder Duration (Minutes) 15 Patient Position Sitting Combined With Heat/Cold Cold Pack PT-OP-T Assessment and Plan Start: 11/12/18 17:28 Freq: Status: Active Protocol: Document 01/27/19 16:00 DCW (Rec: 01/27/19 16:39 DCW [id number]) Physical Therapy Assessment Goals Three Impairment ROM Coil Taper Goal (LTG) Patient will reach full shoulder functional ROM to enable patient reach object overehead without difficulty. LTG Duration 4 wks Two Impairment Quick Dash 32 Coil Taper Goal (LTG) Quick Dash shoulder functional scale of < 15 to improve shoulder function LTG Duration 4 wks One Impairment NO HEP in place Coil Taper Goal (LTG) Patient will exhibits compliance and independent with HEP LTG Duration 3 wks Assessment Summary Assessment Pt noted increased soreness along her Biceps tendon over the weekend, had a lot of difficulty with any lifting orarm movement. Physical Therapy Plan Frequency and Duration Frequency of Treatment 2x/Week Duration of Treatment 8 wks Plan of Care Start Date 01/01/19 Plan of Care End Date 02/26/19 Therapeutic Interventions Therapeutic Interventions Home Exercise Program,Joint Mobilizations,Manual Therapy, Patient/Caregiver Education, Self-Care/Home Management,Soft Tissue Mobilization,Taping, Therapeutic Activities, Therapeutic Exercises Modalities Cold Pack/Ice Massage,Electric Stimulation,Ultrasound Next Visit Focus/Plan Next Note Type Treatment Note Next Visit Plan assess progress and potential need to refer back to PCP
--- NOTE | 2019-01-29 17:24 | PT.OTN ---
Current Diagnoses Pain in right shoulder (01/29/19) Physical Therapy Treatment Note PT-OP-A Visit Information Start: 11/12/18 17:28 Freq: Status: Active Protocol: Document 01/29/19 16:45 DCW (Rec: 01/29/19 17:22 DCW [id number]) Out-Patient Physical Therapy Visit Information Visit Information Visit Type Treatment Note Visit Start Time 16:45 Visit Stop Time 17:35 Total Visit Minutes 50 Visit Number 16 Number of HARDWARE DEVELOPER Visits 0 Evaluation Information Evaluation Date 11/12/18 PT-OP-B Current Condition Start: 11/12/18 17:28 Freq: Status: Active Protocol: Document 11/12/18 17:35 EA (Rec: 11/13/18 16:35 EA [id number]) Current Condition History of Current Condition Onset Date 2 months ago Current Complaints Right shoulder localized pain and weakness History of Current Condition Patient reports had shoulder dislocation initially when she was in highschool playing volleyball; states multple dislocation since then and last happen few ago while her leaned on her shoulder while her arm was in the backseat. She reports no major treament and relocated her shoulder by herself. She reports that in the past weeks since the injury there was no improvement she has been consistent with ICE and resting it. She noticed mostly symptoms increased right after shoulder exercises in the gym. Prior Treatments and Tests None reported formal PT Future Testing and Treatments Planned None reported Treatment Goals Patient/Caregiver Goals 1. Patient would like to strengthen her shoulder to prevent disclocation 2. She wants to get rid of the pain. 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 Current Functional Impairments (Reported) Functional Limitations- ADL's Moderate difficulty in all activities that requires overhead movement, reaching behnd the back Functional Limitations- Work/School Difficulty in all task that requires shoulder rotation and overhead movement Functional Limitations- Recreation/ Unable to participate with Hobbies shoulder fitness exercises in the gym PT-OP-C Subjective Start: 11/12/18 17:28 Freq: Status: Active Protocol: Document 01/29/19 16:45 DCW (Rec: 01/29/19 17:22 DCW [id number]) OP-PT Subjective Patient Comments Patient Comments Pt reports her shoulder is feeling a little sore today. PT-OP-E Functional Tests Start: 11/12/18 17:28 Freq: Status: Active Protocol: Document 11/12/18 17:35 EA (Rec: 11/13/18 16:35 EA [id number]) Functional Tests Apley's Scratch Test Action 1- Left yes Action 1- Right yes Action 2- Left T4 Action 2- Right C7 Action 3- Left T8 Action 3- Right T12 PT-OP-J Posture/Palpation/Skin Start: 11/12/18 17:28 Freq: Status: Active Protocol: Document 11/12/18 17:35 EA (Rec: 11/13/18 16:35 EA [id number]) Posture Evaluation Comments Posture Comments WFL Palpation Assessment Location One Palpation Location anterior and posterior shoulder Palpation Findings Tenderness Palpation Details Grade 2/4 tenderness over rotaor cuff insertion and post shoulder PT-OP-K Range of Motion Start: 11/12/18 17:28 Freq: Status: Active Protocol: Document 01/01/19 16:00 DCW (Rec: 01/02/19 08:34 DCW [id number]) Shoulder Goniometric Range of Motion Shoulder Right Active Flexion 160 Abduction 160 External Rotation at 90 degrees 80 Abduction Internal Rotation 50 Shoulder ROM Limitations Shoulder ROM Limitations Pain Comments Pt at end-range in all motions PT-OP-L Special Tests Start: 11/12/18 17:28 Freq: Status: Active Protocol: Document 01/01/19 16:00 DCW (Rec: 01/02/19 08:34 DCW [id number]) Special Tests Shoulder Special Tests Clunk Test Test Results Negative Saavedra Gagandeep Impingement Test Results Positive Speed's Biceps Test Results Positive Elevation Impingement Test Results Positive Lift-Off Rotator Cuff Test Results Positive PT-OP-M Strength Start: 11/12/18 17:28 Freq: Status: Active Protocol: Document 11/12/18 17:35 EA (Rec: 11/13/18 16:35 EA [id number]) Shoulder Strength Shoulder Manual Muscle Testing Right Flexion 4- Good- Extension 4- Good- Abduction (C5) 4 Good Adduction 4 Good External Rotation 4- Good- Internal Rotation 4- Good- PT-OP-Q Treatments Start: 11/12/18 17:28 Freq: Status: Active Protocol: Document 01/29/19 16:45 DCW (Rec: 01/29/19 17:22 DCW [id number]) Cardio Equipment Upper Body Ergometer (UBE) Duration (Minutes) 5 RPM 60 Seat Position 11 Height 4 Gym Equipment Cable Column (Body Solid) Lat Pull Down Resistance 40# Reps/Time x22 Therapeutic Ball Stability Exercise Details Isometric Stability vs Perturbation Ball Size/Color Blue - 45 cm Body Position Supine Hughston's Exercise Details Prone Hughston's on T-ball Ball Size/Color Green - 65 cm 4# Dumbbells Body Position Prone Reps/Duration x10 Comments I's, Y's, and T's Therapeutic Exercises Supine Exercises Horizontal Adduction Supine Exercise Name Horizontal Adduction Side bilateral Resistance 4# Reps/Minutes x10 Serratus Punch Supine Exercise Name Serratus Punch Side bilateral Resistance 4# Reps/Minutes x20 Standing Exercises Body Blade Standing Exercise Name Body Blade - Flex, Abd, IR Side right Resistance Yellow Other Exercises UE resisted side-stepping Other Exercise Name UE side-stepping Resistance Green Equipment Used T-band PT-OP-R Modalities Start: 11/14/18 15:14 Freq: Status: Active Protocol: Document 01/29/19 16:45 DCW (Rec: 01/29/19 17:22 DCW [id number]) Electric Stimulation Electric Stimulation Interferential Current (IFC) Body Location Right Shoulder Duration (Minutes) 15 Patient Position Sitting Combined With Heat/Cold Cold Pack PT-OP-T Assessment and Plan Start: 11/12/18 17:28 Freq: Status: Active Protocol: Document 01/29/19 16:45 DCW (Rec: 01/29/19 17:22 DCW [id number]) Physical Therapy Assessment Goals Three Impairment ROM Paraeducator Goal (LTG) Patient will reach full shoulder functional ROM to enable patient reach object overehead without difficulty. LTG Duration 4 wks Two Impairment Quick Dash 32 Shelter Goal (LTG) Quick Dash shoulder functional scale of < 15 to improve shoulder function LTG Duration 4 wks One Impairment NO HEP in place Shelter Goal (LTG) Patient will exhibits compliance and independent with HEP LTG Duration 3 wks Assessment Summary Assessment Pt tolerated treatment session better today than earlier this week, less pain and tenderness with activity. Physical Therapy Plan Frequency and Duration Frequency of Treatment 2x/Week Duration of Treatment 8 wks Plan of Care Start Date 01/01/19 Plan of Care End Date 02/26/19 Therapeutic Interventions Therapeutic Interventions Home Exercise Program,Joint Mobilizations,Manual Therapy, Patient/Caregiver Education, Self-Care/Home Management,Soft Tissue Mobilization,Taping, Therapeutic Activities, Therapeutic Exercises Modalities Cold Pack/Ice Massage,Electric Stimulation,Ultrasound Next Visit Focus/Plan Next Note Type Treatment Note Next Visit Plan Continue current POC
--- NOTE | 2019-02-11 16:44 | PT.OTN ---
Current Diagnoses Pain in right shoulder (02/11/19) Physical Therapy Treatment Note PT-OP-A Visit Information Start: 11/12/18 17:28 Freq: Status: Active Protocol: Document 02/11/19 16:00 DCW (Rec: 02/11/19 16:44 DCW [id number]) Out-Patient Physical Therapy Visit Information Visit Information Visit Type Treatment Note Visit Start Time 16:00 Visit Stop Time 16:50 Total Visit Minutes 50 Visit Number 17 Number of CASTING MACHINE OPERATOR AUTOMATIC Visits 0 Evaluation Information Evaluation Date 11/12/18 PT-OP-B Current Condition Start: 11/12/18 17:28 Freq: Status: Active Protocol: Document 11/12/18 17:35 EA (Rec: 11/13/18 16:35 EA [id number]) Current Condition History of Current Condition Onset Date 2 months ago Current Complaints Right shoulder localized pain and weakness History of Current Condition Patient reports had shoulder dislocation initially when she was in highschool playing volleyball; states multple dislocation since then and last happen few ago while her leaned on her shoulder while her arm was in the backseat. She reports no major treament and relocated her shoulder by herself. She reports that in the past weeks since the injury there was no improvement she has been consistent with ICE and resting it. She noticed mostly symptoms increased right after shoulder exercises in the gym. Prior Treatments and Tests None reported formal PT Future Testing and Treatments Planned None reported Treatment Goals Patient/Caregiver Goals 1. Patient would like to strengthen her shoulder to prevent disclocation 2. She wants to get rid of the pain. 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 Current Functional Impairments (Reported) Functional Limitations- ADL's Moderate difficulty in all activities that requires overhead movement, reaching behnd the back Functional Limitations- Work/School Difficulty in all task that requires shoulder rotation and overhead movement Functional Limitations- Recreation/ Unable to participate with Hobbies shoulder fitness exercises in the gym PT-OP-C Subjective Start: 11/12/18 17:28 Freq: Status: Active Protocol: Document 02/11/19 16:00 DCW (Rec: 02/11/19 16:44 DCW [id number]) OP-PT Subjective Patient Comments Patient Comments Pt reports her shoulder was really good until Saturday, because I had to weedwack and mow our lawn. But by Saturday I was fine. PT-OP-E Functional Tests Start: 11/12/18 17:28 Freq: Status: Active Protocol: Document 11/12/18 17:35 EA (Rec: 11/13/18 16:35 EA [id number]) Functional Tests Apley's Scratch Test Action 1- Left yes Action 1- Right yes Action 2- Left T4 Action 2- Right C7 Action 3- Left T8 Action 3- Right T12 PT-OP-J Posture/Palpation/Skin Start: 11/12/18 17:28 Freq: Status: Active Protocol: Document 11/12/18 17:35 EA (Rec: 11/13/18 16:35 EA [id number]) Posture Evaluation Comments Posture Comments WFL Palpation Assessment Location One Palpation Location anterior and posterior shoulder Palpation Findings Tenderness Palpation Details Grade 2/4 tenderness over rotaor cuff insertion and post shoulder PT-OP-K Range of Motion Start: 11/12/18 17:28 Freq: Status: Active Protocol: Document 01/01/19 16:00 DCW (Rec: 01/02/19 08:34 DCW [id number]) Shoulder Goniometric Range of Motion Shoulder Right Active Flexion 160 Abduction 160 External Rotation at 90 degrees 80 Abduction Internal Rotation 50 Shoulder ROM Limitations Shoulder ROM Limitations Pain Comments Pt at end-range in all motions PT-OP-L Special Tests Start: 11/12/18 17:28 Freq: Status: Active Protocol: Document 01/01/19 16:00 DCW (Rec: 01/02/19 08:34 DCW [id number]) Special Tests Shoulder Special Tests Clunk Test Test Results Negative Saavedra Gagandeep Impingement Test Results Positive Speed's Biceps Test Results Positive Elevation Impingement Test Results Positive Lift-Off Rotator Cuff Test Results Positive PT-OP-M Strength Start: 11/12/18 17:28 Freq: Status: Active Protocol: Document 11/12/18 17:35 EA (Rec: 11/13/18 16:35 EA [id number]) Shoulder Strength Shoulder Manual Muscle Testing Right Flexion 4- Good- Extension 4- Good- Abduction (C5) 4 Good Adduction 4 Good External Rotation 4- Good- Internal Rotation 4- Good- PT-OP-Q Treatments Start: 11/12/18 17:28 Freq: Status: Active Protocol: Document 02/11/19 16:00 DCW (Rec: 02/11/19 16:44 DCW [id number]) Cardio Equipment Upper Body Ergometer (UBE) Duration (Minutes) 5 RPM 60 Seat Position 13 Height 4 Gym Equipment Cable Column (Body Solid) Lat Pull Down Resistance 40# Reps/Time x20 Therapeutic Ball Hughston's Exercise Details Prone Hughston's on T-ball Ball Size/Color Green - 65 cm 4# Dumbbells Body Position Prone Reps/Duration x10 Comments I's, Y's, and T's Therapeutic Exercises Standing Exercises D1/D2 PNF Flexion Standing Exercise Name D1/D2 PNF Flexion Side right Resistance 2# Body Blade Standing Exercise Name Body Blade - Flex, Abd, IR Side right Resistance Yellow Other Exercises UE resisted side-stepping Other Exercise Name UE side-stepping Resistance Blue Equipment Used T-band PT-OP-R Modalities Start: 11/14/18 15:14 Freq: Status: Active Protocol: Document 02/11/19 16:00 DCW (Rec: 02/11/19 16:44 DCW [id number]) Electric Stimulation Electric Stimulation Interferential Current (IFC) Body Location Right Shoulder Duration (Minutes) 15 Patient Position Sitting Combined With Heat/Cold Cold Pack PT-OP-T Assessment and Plan Start: 11/12/18 17:28 Freq: Status: Active Protocol: Document 02/11/19 16:00 DCW (Rec: 02/11/19 16:44 DCW [id number]) Physical Therapy Assessment Goals Three Impairment ROM Registered Midwife Goal (LTG) Patient will reach full shoulder functional ROM to enable patient reach object overehead without difficulty. LTG Duration 4 wks Two Impairment Quick Dash 32 Registered Midwife Goal (LTG) Quick Dash shoulder functional scale of < 15 to improve shoulder function LTG Duration 4 wks One Impairment NO HEP in place Usp Goal (LTG) Patient will exhibits compliance and independent with HEP LTG Duration 3 wks Assessment Summary Assessment Pt did well today, fewer complaints of difficulty with TherEx, no complaints of pain, more just muscle fatigue. Physical Therapy Plan Frequency and Duration Frequency of Treatment 2x/Week Duration of Treatment 8 wks Plan of Care Start Date 01/01/19 Plan of Care End Date 02/26/19 Therapeutic Interventions Therapeutic Interventions Home Exercise Program,Joint Mobilizations,Manual Therapy, Patient/Caregiver Education, Self-Care/Home Management,Soft Tissue Mobilization,Taping, Therapeutic Activities, Therapeutic Exercises Modalities Cold Pack/Ice Massage,Electric Stimulation,Ultrasound Next Visit Focus/Plan Next Note Type Treatment Note Next Visit Plan Continue current POC
== END 2019-02-12 12:54 ==
LOC: PHYS 16:00
PROVIDERS: PCP Family Medicine; Visit Provider Family Medicine
DX: M25.511 Pain in right shoulder (principal)
CPT/HCPCS: 97014; 97032; 97110; 97140; 97161; 97535; G0283

== ENCOUNTER → 2019-03-10 07:47 | Outpatient (CLI) | payer OTHER, SELFPAY ==
--- NOTE | 2019-03-10 07:49 | DI.MRI.S_ITS ---
PROCEDURE: MR SHOULDER RT W CON INDICATIONS: right shoulder pain TECHNIQUE: After the administration of 12 mL of dilute intra-articular Gadolinium contrast, oblique coronal T1 and T2 spin echo with fat saturation, oblique sagittal T1 spin echo with and without fat saturation, oblique sagittal T2 fast spin echo with fat saturation, axial T1 spin echo with fat saturation through the shoulder. COMPARISON: None. FINDINGS: Image quality: Excellent. Rotator cuff: The supraspinatus, infraspinatus, and subscapularis tendons appear intact throughout. The supraspinatus interspinous tendons are mildly thickened with slight increased internal signal compatible with mild tendinosis. No rotator cuff muscle atrophy on sagittal images. Bones and bursae: No bone marrow contusions or fractures. No acromioclavicular joint degeneration. The acromion demonstrates conventional anatomy, without an os acromiale. Capsule and soft tissues: The labrum and glenohumeral ligaments appear intact. The long head of the biceps tendon demonstrates normal location and morphology. The rotator interval appears normal, without fibrosis. The coracohumeral ligament is of normal thickness. No intra-articular bodies. IMPRESSION: 1. No rotator cuff tear. 2. No labral tear. 3. Mild supraspinatus and infraspinatus tendinopathy. Dictated by: Grace Fierro MD, PhD on 03/10/2019 at 11:08 Approved by: Grace Fierro MD, PhD on 03/11/2019 at 11:50
--- NOTE | 2019-03-10 07:49 | DI.RAD.S_ITS ---
PROCEDURE: FL SHOULDER INJECTION MR/CT RT INDICATIONS: rotator cuff injury TECHNIQUE: The indications, alternatives, benefits, risks, and complications of the procedure were explained to the patient. Written informed consent was obtained and placed in the chart. The shoulder was examined fluoroscopically and a site for needle placement chosen for entry into the glenohumeral joint from an anterior approach. The skin was prepped and draped in a sterile fashion, and 1% lidocaine infiltrated from skin down to joint capsule. A spinal needle was inserted into the glenohumeral joint, and a small amount of iodinated contrast media injected to confirm intra-articular placement of the needle tip. This was followed by approximately 15 mL dilute solution of a gadolinium containing MR contrast agent. The needle was removed and a dressing was applied. The patient was given postprocedural instructions and sent to the MR suite for MR imaging. FINDINGS: A single fluoroscopic spot image demonstrates intra-articular location of injected iodinated contrast. IMPRESSION: Successful fluoroscopically guided administration of dilute Gadolinium solution into the right shoulder joint for MR arthrogram. Dictated by: Lalo Jimenez M.D. on 03/10/2019 at 10:08 Approved by: Lalo Jimenez M.D. on 03/10/2019 at 10:09
== END ==
PROVIDERS: PCP Family Medicine; Visit Provider Family Medicine
DX: M25.511 Pain in right shoulder (principal); M67.911 Unspecified disorder of synovium and tendon, right shoulder
CPT/HCPCS: 23350; 73222; 77002

== ENCOUNTER → 2019-04-16 11:32 | Outpatient (CLI) | payer OTHER, SELFPAY | PROVIDERS: PCP Family Medicine | DX: Z23 Encounter for immunization (principal) | CPT/HCPCS: 90471; 90686 ==

== ENCOUNTER 2019-07-27 12:00 | Outpatient (RCR) | payer OTHER, SELFPAY ==
--- NOTE | 2019-07-14 17:09 | PT.OIE ---
Current Diagnoses Recurrent dislocation, right shoulder (07/14/19) Pain in right shoulder (07/14/19) Impingement syndrome of right shoulder (07/14/19) Past Medical History (Last Updated 09/03/18 @ 20:22 by Christi Correa) Ankle pain (Chronic ~2017) Anxiety (Chronic ~2013) Asthma (Chronic ~2009) Depression (Chronic ~2013) Eczema (Chronic ~2013) Headache (Chronic ~2010) Migraines (Chronic ~2017) Seasonal allergies (Chronic ~2009) Past Surgical History (Last Updated 09/03/18 @ 20:22 by Christi Correa) History of tonsillectomy (Resolved ~1999) Visit Care Team Role Provider Type No Contreras MD Primary Care Provider Physician Specialty: Family Practice Address: [address] [place] [address], [id number] Email: [email or web address] Dank Delgado MD Attending Provider Physician Referring Provider Specialty: Orthopedic Surgery Address: [address] [place] [address], [address] Email: [email or web address] Physical Therapy Initial Evaluation PT-OP-A Visit Information Start: 07/14/19 16:03 Freq: Status: Active Protocol: Document 07/14/19 15:30 DCW (Rec: 07/14/19 17:09 [facility] [id number]) Out-Patient Physical Therapy Visit Information Visit Information Visit Type Initial Evaluation Visit Start Time 15:30 Visit Stop Time 16:06 Total Visit Minutes 36 Visit Number 1 Number of CODING SUPPORT SPECIALIST Visits 0 Evaluation Information Evaluation Date 07/14/19 PT-OP-B Current Condition Start: 07/14/19 16:03 Freq: Status: Active Protocol: Document 07/14/19 15:30 DCW (Rec: 07/14/19 17:09 [facility] [id number]) Current Condition History of Current Condition Onset Date Multi-year history Current Complaints Shoulder pain/soreness, recurrent shoulder dislocations/subluxations History of Current Condition Pt is a 23 year old female with a history of numerous right shoulder dislocations and subluxations. Pt notes her first instance of shoulder dislocation occurred playing volleyball in high school. Pt was previously seen in this clinic between November and February of 2019, weeks after another dislocation. Pt notes that now, she has not had another dislocation since that time, and overall feels like her shoulder is doing well. An MRI in March showed no ligamental or labral damage, and she had a Cortisone injection ~5 weeks ago, which has helped a lot with the pain . Currently, pt has the most pain when accidentally sleeping on her right shoulder, when sitting at her desk too long, or seemingly randomly through the day. Pt does report that it feels like there is a lot of pressure in her shoulder, like it needs to pop, or that it's swollen. Prior Treatments and Tests Previously attended PT from November through February, R Shoulder MRI:IMPRESSION: 1. No rotator cuff tear. 2. No labral tear. 3. Mild supraspinatus and infraspinatus tendinopathy. Per: Grace Fierro MD, PhD on 03/10/2019 Cortisone injection s/p 5 weeks PT-OP-C Subjective Start: 07/14/19 16:03 Freq: Status: Active Protocol: Document 07/14/19 15:30 DCW (Rec: 07/14/19 17:09 [facility] [id number]) OP-PT Subjective Patient Comments Patient Comments Pt overall feeling much better than she was at the start of her last round of physical therapy. Patient Reported Progress Improving Patient Questionnaires Quick Dash- Upper Extremity Quick Dash UE Score 40.91 Quick Dash UE Impairment 40 to 59% Impaired (Score 40- 59) OP-PT Pain Assessment Pain Assessment Grid Paper Pain Assessment Grid Completed Yes Location Right Anterior Shoulder Intensity 6 Scale Used Numeric (1 - 10) Description Pressure,Shooting Frequency Occasional PT-OP-E Functional Tests Start: 07/14/19 16:03 Freq: Status: Active Protocol: Document 07/14/19 15:30 DCW (Rec: 07/14/19 17:09 [facility] [id number]) Functional Tests Rodey's Scratch Test Action 1- Left Posterior opposite shoulder Action 1- Right Posterior opposite shoulder Action 2- Left T5 Action 2- Right T4 Action 3- Left T6 Action 3- Right T9 PT-OP-F Manual Assessment Start: 07/14/19 16:03 Freq: Status: Active Protocol: Document 07/14/19 15:30 DCW (Rec: 07/14/19 17:09 DC[facility] [id number]) Manual Assessments Soft Tissue Assessment Soft Tissue Mobility Assessment Severe tone with tenderness to palpation 3/4: Wincing and withdraw along right pec Moderate tone with tenderness to palpation 2/4: Pain with wincing at left pec, right biceps, right supraspinatus and infraspinatus. PT-OP-J Posture/Palpation/Skin Start: 07/14/19 16:03 Freq: Status: Active Protocol: Document 07/14/19 15:30 DCW (Rec: 07/14/19 17:09 [facility] [id number]) Posture Evaluation Position Sitting Evaluation View Lateral Shoulder Posture (L) Rounded,(R) Rounded,(L) Forward,(R) Forward Shoulder Subluxation Position (R) Anterior Scapula Posture (L) Protracted,(R) Protracted Arm Posture (R) Internally Rotated PT-OP-K Range of Motion Start: 07/14/19 16:03 Freq: Status: Active Protocol: Document 07/14/19 15:30 DCW (Rec: 07/14/19 17:09 [facility] [id number]) Shoulder Goniometric Range of Motion Shoulder Right Active Shoulder ROM WFL Yes Left Active Shoulder ROM WFL Yes PT-OP-L Special Tests Start: 07/14/19 16:03 Freq: Status: Active Protocol: Document 07/14/19 15:30 DCW (Rec: 07/14/19 17:09 [facility] [id number]) Special Tests Shoulder Special Tests Yergason's Biceps Test Results R Positive Passive ER Rotator Cuff Test Results R Positive Empty Can Test Results Negative Belly Press Test Results R Positive Saavedra Gagandeep Impingement Test Results R Positive Speed's Biceps Test Results R Positive Lift-Off Rotator Cuff Test Results R Positive PT-OP-M Strength Start: 07/14/19 16:03 Freq: Status: Active Protocol: Document 07/14/19 15:30 DCW (Rec: 07/14/19 17:09 [facility] [id number]) Shoulder Strength Shoulder Manual Muscle Testing Right Flexion 4- Good- Abduction (C5) 4+ Good+ Adduction 5 Normal External Rotation 4- Good- Internal Rotation 5 Normal Left Flexion 5 Normal Abduction (C5) 5 Normal Adduction 5 Normal External Rotation 5 Normal Internal Rotation 5 Normal Elbow/Forearm Strength Elbow and Forearm Manual Muscle Testing Right Flexion (C6) 5 Normal Extension (C7) 4 Good Left Flexion (C6) 5 Normal Extension (C7) 5 Normal PT-OP-Q Treatments Start: 07/14/19 16:03 Freq: Status: Active Protocol: Document 07/14/19 15:30 DCW (Rec: 07/14/19 17:09 [facility] [id number]) Therapeutic Exercises Standing Exercises Pec Stretch Standing Exercise Name Door pec stretch Side right Manual Therapy Treatment Soft Tissue Mobilization pectoralis major and minor Mobilization Type Strumming,Sustained Pressure, Trigger Point Release Intensity/Depth Moderate Body Position Supine PT-OP-T Assessment and Plan Start: 07/14/19 16:03 Freq: Status: Active Protocol: Document 07/14/19 15:30 DCW (Rec: 07/14/19 17:09 [facility] [id number]) Physical Therapy Assessment Rehab Potential Rehabilitation Potential Excellent Evaluation Complexity Number of Personal Factors/Comorbidities 0 Number of Body Systems Impaired 1-2 Clinical Presentation at Evaluation Stable Impairments Impairments Pain,Posture,Soft Tissue Mobility,Strength,Tone Goals Three Impairment Pt has pain when sleeping on her right side Wastewater Technician Goal (LTG) Pt to report no pain with sleeping for one month LTG Duration 09/13/19 Two Impairment Quick Dash score of 40.91 Fpc Goal (LTG) Quick Dash shoulder functional scale of < 15 to show improvement in shoulder function LTG Duration 09/13/19 One Impairment Pt does not have an appropriate home exercise program Short Term Goal (STG) Patient to be compliant and independent with appropriate HEP STG Duration 08/14/19 Assessment Summary Assessment Pt presents with occasional shoulder pain and soreness following a long history of multiple shoulder dislocations and subluxations. Pt has not had any recent dislocations, and is feeling better following a recent cortisone injection. Pt special testing for her shoulder is largely positive for everything, likely suggesting just general inflammation and instability. Pt displays a R anterior GH shift, likely due to the severe tone in her right pec. Pt also demonstrates weakness in her right shoulder, however it appeared to be more secondary to pain during resistance than weakness. Pt should benefit from skilled therapy focusing on improving flexibility, decreasing muscle tone, improving shoulder girdle strength, and improve posture. Physical Therapy Plan Frequency and Duration Frequency of Treatment 2x/Week Duration of Treatment 2 months Plan of Care Start Date 07/14/19 Plan of Care End Date 09/13/19 Therapeutic Interventions Therapeutic Interventions Home Exercise Program,Joint Mobilizations,Manual Therapy, Patient/Caregiver Education, Self-Care/Home Management,Soft Tissue Mobilization,Taping, Therapeutic Exercises Modalities Cold Pack/Ice Massage,Electric Stimulation,Hot Packs, Iontophoresis,Ultrasound Other Therapeutic Interventions Iontophoresis with Dexamethasone, 4 mg/mL Next Visit Focus/Plan Next Note Type Treatment Note Next Visit Plan STM to pec, parascapulars, parascapular strengthening
--- NOTE | 2019-07-14 17:10 | PT.OPPOC ---
Physical, Occupational & Speech Therapy At Located Within [facility] Current Diagnoses Recurrent dislocation, right shoulder (07/14/19) Pain in right shoulder (07/14/19) Impingement syndrome of right shoulder (07/14/19) Visit Care Team Role Provider Type No Contreras MD Primary Care Provider Physician Specialty: Family Practice Address: [address] [place] [address], [facility] [place], [address] Email: [email or web address] Dank Delgado MD Attending Provider Physician Referring Provider Specialty: Orthopedic Surgery Address: [address] [place] [address], [phone] Email: [email or web address] Plan Of Care PT-OP-T Assessment and Plan Start: 07/14/19 16:03 Freq: Status: Active Protocol: Document 07/14/19 15:30 DCW (Rec: 07/14/19 17:09 [facility] [id number]) Physical Therapy Assessment Rehab Potential Rehabilitation Potential Excellent Evaluation Complexity Number of Personal Factors/Comorbidities 0 Number of Body Systems Impaired 1-2 Clinical Presentation at Evaluation Stable Impairments Impairments Pain,Posture,Soft Tissue Mobility,Strength,Tone Goals Three Impairment Pt has pain when sleeping on her right side Produce Inspector Goal (LTG) Pt to report no pain with sleeping for one month LTG Duration 09/13/19 Two Impairment Quick Dash score of 40.91 Produce Inspector Goal (LTG) Quick Dash shoulder functional scale of < 15 to show improvement in shoulder function LTG Duration 09/13/19 One Impairment Pt does not have an appropriate home exercise program Short Term Goal (STG) Patient to be compliant and independent with appropriate HEP STG Duration 08/14/19 Assessment Summary Assessment Pt presents with occasional shoulder pain and soreness following a long history of multiple shoulder dislocations and subluxations. Pt has not had any recent dislocations, and is feeling better following a recent cortisone injection. Pt special testing for her shoulder is largely positive for everything, likely suggesting just general inflammation and instability. Pt displays a R anterior GH shift, likely due to the severe tone inher right pec. Pt also demonstrates weakness in her right shoulder, however it appeared to be more secondary to pain during resistance than weakness. Pt should benefit from skilled therapy focusing on improving flexibility, decreasing muscle tone, improving shoulder girdle strength, and improve posture. Physical Therapy Plan Frequency and Duration Frequency of Treatment 2x/Week Duration of Treatment 2 months Plan of Care Start Date 07/14/19 Plan of Care End Date 09/13/19 Therapeutic Interventions Therapeutic Interventions Home Exercise Program,Joint Mobilizations,Manual Therapy, Patient/Caregiver Education, Self-Care/Home Management,Soft Tissue Mobilization,Taping, Therapeutic Exercises Modalities Cold Pack/Ice Massage,Electric Stimulation,Hot Packs, Iontophoresis,Ultrasound Other Therapeutic Interventions Iontophoresis with Dexamethasone, 4 mg/mL Next Visit Focus/Plan Next Note Type Treatment Note Next Visit Plan STM to pec, parascapulars, parascapular strengthening Plan of Care Dates Plan of Care Start Date 07/14/19 Plan of Care End Date 09/13/19 Electronically Signed by: Erik Doshi, PT 07/14/19 6998 Please Sign and Return: I have reviewed this Plan of Care and certify that the skilled therapy services above are required to meet the patient?s needs. Physician Signature Date Printed Name and Credentials Clinical Instructor Signature Printed Name and Credentials
--- NOTE | 2019-07-17 12:02 | PT.OTN ---
Current Diagnoses Recurrent dislocation, right shoulder (07/17/19) Pain in right shoulder (07/17/19) Impingement syndrome of right shoulder (07/17/19) Physical Therapy Treatment Note PT-OP-A Visit Information Start: 07/14/19 16:03 Freq: Status: Active Protocol: Document 07/17/19 11:15 DCW (Rec: 07/17/19 12:01 DC[facility] [id number]) Out-Patient Physical Therapy Visit Information Visit Information Visit Type Treatment Note Visit Start Time 11:15 Visit Stop Time 12:05 Total Visit Minutes 50 Visit Number 2 Number of WILDLIFE BIOLOGIST Visits 0 Evaluation Information Evaluation Date 07/14/19 PT-OP-B Current Condition Start: 07/14/19 16:03 Freq: Status: Active Protocol: Document 07/14/19 15:30 DCW (Rec: 07/14/19 17:09 [facility] [id number]) Current Condition History of Current Condition Onset Date Multi-year history Current Complaints Shoulder pain/soreness, recurrent shoulder dislocations/subluxations History of Current Condition Pt is a 23 year old female with a history of numerous right shoulder dislocations and subluxations. Pt notes her first instance of shoulder dislocation occurred playing volleyball in high school. Pt was previously seen in this clinic between November and February of 2019, weeks after another dislocation. Pt notes that now, she has not had another dislocation since that time, and overall feels like her shoulder is doing well. An MRI in March showed no ligamental or labral damage, and she had a Cortisone injection ~5 weeks ago, which has helped a lot with the pain . Currently, pt has the most pain when accidentally sleeping on her right shoulder , when sitting at her desk too long, or seemingly randomly through the day. Pt does report that it feels like there is a lot of pressure in her shoulder, like it needs to pop, or that it's swollen. Prior Treatments and Tests Previously attended PT from November through February, R Shoulder MRI:IMPRESSION: 1. No rotator cuff tear. 2. No labral tear. 3. Mild supraspinatus and infraspinatus tendinopathy. Per: Grace Fierro MD, PhD on 03/10/2019 Cortisone injection s/p 5 weeks PT-OP-C Subjective Start: 07/14/19 16:03 Freq: Status: Active Protocol: Document 07/17/19 11:15 DCW (Rec: 07/17/19 12:01 DCW [id number]) OP-PT Subjective Patient Comments Patient Comments It popped last night, and I had a weird tingling feeling, but it went away. PT-OP-E Functional Tests Start: 07/14/19 16:03 Freq: Status: Active Protocol: Document 07/14/19 15:30 DCW (Rec: 07/14/19 17:09 DCW [id number]) Functional Tests Apley's Scratch Test Action 1- Left Posterior opposite shoulder Action 1- Right Posterior opposite shoulder Action 2- Left T5 Action 2- Right T4 Action 3- Left T6 Action 3- Right T9 PT-OP-F Manual Assessment Start: 07/14/19 16:03 Freq: Status: Active Protocol: Document 07/14/19 15:30 DCW (Rec: 07/14/19 17:09 DCW [id number]) Manual Assessments Soft Tissue Assessment Soft Tissue Mobility Assessment Severe tone with tenderness to palpation 3/4: Wincing and withdraw along right pec Moderate tone with tenderness to palpation 2/4: Pain with wincing at left pec, right biceps, right supraspinatus and infraspinatus. PT-OP-J Posture/Palpation/Skin Start: 07/14/19 16:03 Freq: Status: Active Protocol: Document 07/14/19 15:30 DCW (Rec: 07/14/19 17:09 DCW [id number]) Posture Evaluation Position Sitting Evaluation View Lateral Shoulder Posture (L) Rounded,(R) Rounded,(L) Forward,(R) Forward Shoulder Subluxation Position (R) Anterior Scapula Posture (L) Protracted,(R) Protracted Arm Posture (R) Internally Rotated PT-OP-K Range of Motion Start: 07/14/19 16:03 Freq: Status: Active Protocol: Document 07/14/19 15:30 DCW (Rec: 07/14/19 17:09 DCW [id number]) Shoulder Goniometric Range of Motion Shoulder Right Active Shoulder ROM WFL Yes Left Active Shoulder ROM WFL Yes PT-OP-L Special Tests Start: 07/14/19 16:03 Freq: Status: Active Protocol: Document 07/14/19 15:30 DCW (Rec: 07/14/19 17:09 DCW [id number]) Special Tests Shoulder Special Tests Yergason's Biceps Test Results R Positive Passive ER Rotator Cuff Test Results R Positive Empty Can Test Results Negative Belly Press Test Results R Positive Saavedra Gagandeep Impingement Test Results R Positive Speed's Biceps Test Results R Positive Lift-Off Rotator Cuff Test Results R Positive PT-OP-M Strength Start: 07/14/19 16:03 Freq: Status: Active Protocol: Document 07/14/19 15:30 DCW (Rec: 07/14/19 17:09 DCW [id number]) Shoulder Strength Shoulder Manual Muscle Testing Right Flexion 4- Good- Abduction (C5) 4+ Good+ Adduction 5 Normal External Rotation 4- Good- Internal Rotation 5 Normal Left Flexion 5 Normal Abduction (C5) 5 Normal Adduction 5 Normal External Rotation 5 Normal Internal Rotation 5 Normal Elbow/Forearm Strength Elbow and Forearm Manual Muscle Testing Right Flexion (C6) 5 Normal Extension (C7) 4 Good Left Flexion (C6) 5 Normal Extension (C7) 5 Normal PT-OP-Q Treatments Start: 07/14/19 16:03 Freq: Status: Active Protocol: Document 07/17/19 11:15 DCW (Rec: 07/17/19 12:01 [facility] [id number]) Cardio Equipment Upper Body Ergometer (UBE) Duration (Minutes) 5 RPM 60 Seat Position 15 Height 3 Therapeutic Exercises Supine Exercises Pec Stretch Supine Exercise Name Pec Stretch on foam roll Standing Exercises Wall Push-ups Standing Exercise Name Wall push-ups Comments <> and W hand positions Shoulder pro/retraction Standing Exercise Name Shoulder protraction/ retraction at wall Wall Snow [place] Standing Exercise Name Wall snow angels Comments Focus on posture Manual Therapy Treatment Soft Tissue Mobilization pectoralis major and minor Mobilization Type Strumming,Sustained Pressure, Trigger Point Release Intensity/Depth Moderate Body Position Supine Supraspinatus Body Location R Supraspinatus Mobilization Type Strumming,Sustained Pressure, Trigger Point Release Body Position Sitting Upper Trap Body Location R Upper Trap Mobilization Type Strumming,Sustained Pressure Body Position Sitting PT-OP-R Modalities Start: 07/14/19 16:03 Freq: Status: Active Protocol: Document 07/17/19 11:15 DCW (Rec: 07/17/19 12:01 DCW [id number]) Electric Stimulation Electric Stimulation Interferential Current (IFC) Body Location Right Shoulder Duration (Minutes) 15 Patient Position Sitting Combined With Heat/Cold Cold Pack PT-OP-T Assessment and Plan Start: 07/14/19 16:03 Freq: Status: Active Protocol: Document 07/17/19 11:15 DCW (Rec: 07/17/19 12:01 DCW [id number]) Physical Therapy Assessment Impairments Impairments Pain,Posture,Soft Tissue Mobility,Strength,Tone Goals Three Impairment Pt has pain when sleeping on her right side Residential Goal (LTG) Pt to report no pain with sleeping for one month LTG Duration 09/13/19 Two Impairment Quick Dash score of 40.91 [place] Swage Operator Goal (LTG) Quick Dash shoulder functional scale of < 15 to show improvement in shoulder function LTG Duration 09/13/19 One Impairment Pt does not have an appropriate home exercise program Short Term Goal (STG) Patient to be compliant and independent with appropriate HEP STG Duration 08/14/19 Assessment Summary Assessment Pt tolerated treatment well today, continues to have fairly significant tenderness with palpation or right pec. Worked on improving posture and scapular retraction. Physical Therapy Plan Frequency and Duration Frequency of Treatment 2x/Week Duration of Treatment 2 months Plan of Care Start Date 07/14/19 Plan of Care End Date 09/13/19 Therapeutic Interventions Therapeutic Interventions Home Exercise Program,Joint Mobilizations,Manual Therapy, Patient/Caregiver Education, Self-Care/Home Management,Soft Tissue Mobilization,Taping, Therapeutic Exercises Modalities Cold Pack/Ice Massage,Electric Stimulation,Hot Packs, Iontophoresis,Ultrasound Other Therapeutic Interventions Iontophoresis with Dexamethasone, 4 mg/mL Next Visit Focus/Plan Next Note Type Treatment Note Next Visit Plan STM to pec, parascapulars, parascapular strengthening
--- NOTE | 2019-07-23 12:02 | PT.OTN ---
Current Diagnoses Recurrent dislocation, right shoulder (07/23/19) Pain in right shoulder (07/23/19) Impingement syndrome of right shoulder (07/23/19) Physical Therapy Treatment Note PT-OP-A Visit Information Start: 07/14/19 16:03 Freq: Status: Active Protocol: Document 07/23/19 11:15 DCW (Rec: 07/23/19 12:02 DCW [id number]) Out-Patient Physical Therapy Visit Information Visit Information Visit Type Treatment Note Visit Start Time 11:15 Visit Stop Time 12:00 Total Visit Minutes 45 Visit Number 4 Number of GAS MAIN FITTER Visits 0 Evaluation Information Evaluation Date 07/14/19 PT-OP-B Current Condition Start: 07/14/19 16:03 Freq: Status: Active Protocol: Document 07/14/19 15:30 DCW (Rec: 07/14/19 17:09 DCW [id number]) Current Condition History of Current Condition Onset Date Multi-year history Current Complaints Shoulder pain/soreness, recurrent shoulder dislocations/subluxations History of Current Condition Pt is a 23 year old female with a history of numerous right shoulder dislocations and subluxations. Pt notes her first instance of shoulder dislocation occurred playing volleyball in high school. Pt was previously seen in this clinic between November and February of 2019, weeks after another dislocation. Pt notes that now, she has not had another dislocation since that time, and overall feels like her shoulder is doing well. An MRI in March showed no ligamental or labral damage, and she had a Cortisone injection ~5 weeks ago, which has helped a lot with the pain . Currently, pt has the most pain when accidentally sleeping on her right shoulder , when sitting at her desk too long, or seemingly randomly through the day. Pt does report that it feels like there is a lot of pressure in her shoulder, like it needs to pop, or that it's swollen. Prior Treatments and Tests Previously attended PT from November through February, R Shoulder MRI:IMPRESSION: 1. No rotator cuff tear. 2. No labral tear. 3. Mild supraspinatus and infraspinatus tendinopathy. Per: Grace Fierro MD, PhD on 03/10/2019 Cortisone injection s/p 5 weeks PT-OP-C Subjective Start: 07/14/19 16:03 Freq: Status: Active Protocol: Document 07/23/19 11:15 DCW (Rec: 07/23/19 12:02 DCW [id number]) OP-PT Subjective Patient Comments Patient Comments Pt reports her shoulder feels good today. She was able to stretch it out yesterday, and it's doing really well. PT-OP-E Functional Tests Start: 07/14/19 16:03 Freq: Status: Active Protocol: Document 07/14/19 15:30 DCW (Rec: 07/14/19 17:09 DCW [id number]) Functional Tests Apley's Scratch Test Action 1- Left Posterior opposite shoulder Action 1- Right Posterior opposite shoulder Action 2- Left T5 Action 2- Right T4 Action 3- Left T6 Action 3- Right T9 PT-OP-F Manual Assessment Start: 07/14/19 16:03 Freq: Status: Active Protocol: Document 07/14/19 15:30 DCW (Rec: 07/14/19 17:09 DCW [id number]) Manual Assessments Soft Tissue Assessment Soft Tissue Mobility Assessment Severe tone with tenderness to palpation 3/4: Wincing and withdraw along right pec Moderate tone with tenderness to palpation 2/4: Pain with wincing at left pec, right biceps, right supraspinatus and infraspinatus. PT-OP-J Posture/Palpation/Skin Start: 07/14/19 16:03 Freq: Status: Active Protocol: Document 07/14/19 15:30 DCW (Rec: 07/14/19 17:09 DCW [id number]) Posture Evaluation Position Sitting Evaluation View Lateral Shoulder Posture (L) Rounded,(R) Rounded,(L) Forward,(R) Forward Shoulder Subluxation Position (R) Anterior Scapula Posture (L) Protracted,(R) Protracted Arm Posture (R) Internally Rotated PT-OP-K Range of Motion Start: 07/14/19 16:03 Freq: Status: Active Protocol: Document 07/14/19 15:30 DCW (Rec: 07/14/19 17:09 DCW [id number]) Shoulder Goniometric Range of Motion Shoulder Right Active Shoulder ROM WFL Yes Left Active Shoulder ROM WFL Yes PT-OP-L Special Tests Start: 07/14/19 16:03 Freq: Status: Active Protocol: Document 07/14/19 15:30 DCW (Rec: 07/14/19 17:09 DCW [id number]) Special Tests Shoulder Special Tests Yergason's Biceps Test Results R Positive Passive ER Rotator Cuff Test Results R Positive Empty Can Test Results Negative Belly Press Test Results R Positive Saavedra Gagandeep Impingement Test Results R Positive Speed's Biceps Test Results R Positive Lift-Off Rotator Cuff Test Results R Positive PT-OP-M Strength Start: 07/14/19 16:03 Freq: Status: Active Protocol: Document 07/14/19 15:30 DCW (Rec: 07/14/19 17:09 DCW [id number]) Shoulder Strength Shoulder Manual Muscle Testing Right Flexion 4- Good- Abduction (C5) 4+ Good+ Adduction 5 Normal External Rotation 4- Good- Internal Rotation 5 Normal Left Flexion 5 Normal Abduction (C5) 5 Normal Adduction 5 Normal External Rotation 5 Normal Internal Rotation 5 Normal Elbow/Forearm Strength Elbow and Forearm Manual Muscle Testing Right Flexion (C6) 5 Normal Extension (C7) 4 Good Left Flexion (C6) 5 Normal Extension (C7) 5 Normal PT-OP-Q Treatments Start: 07/14/19 16:03 Freq: Status: Active Protocol: Document 07/23/19 11:15 DCW (Rec: 07/23/19 12:02 DCW [id number]) Cardio Equipment Upper Body Ergometer (UBE) Duration (Minutes) 5 RPM 60 Seat Position 15 Height 3 Therapeutic Exercises Supine Exercises Pec Stretch Supine Exercise Name Pec Stretch on foam roll Horizontal Adduction Supine Exercise Name Horizontal Adduction Side bilateral Resistance 4# Equipment Used Foam roll Reps/Minutes x20 Serratus Punch Supine Exercise Name Serratus Punch Side bilateral Resistance 4# Equipment Used Foam Roll Reps/Minutes x20 Standing Exercises Reverse Flys Standing Exercise Name Reverse Flys Side bilateral Resistance Lv 2 Equipment Used T-band Rows Standing Exercise Name Rows Side bilateral Resistance Lv 4 Equipment Used T-band Wall Push-ups Standing Exercise Name Wall push-ups Comments <> and W hand positions Shoulder Extension Standing Exercise Name Extension Side bilateral Resistance Lv 4 Equipment Used T-band Manual Therapy Treatment Soft Tissue Mobilization pectoralis major and minor Mobilization Type Strumming,Sustained Pressure, Trigger Point Release Intensity/Depth Moderate Body Position Supine Supraspinatus Body Location R Supraspinatus Mobilization Type Strumming,Sustained Pressure, Trigger Point Release Body Position Sitting Upper Trap Body Location R Upper Trap Mobilization Type Strumming,Sustained Pressure Body Position Sitting Subscapularis Body Location R Subscap Mobilization Type Strumming,Sustained Pressure Body Position Sitting PT-OP-R Modalities Start: 07/14/19 16:03 Freq: Status: Active Protocol: Document 07/17/19 11:15 DCW (Rec: 07/17/19 12:01 DCW [id number]) Electric Stimulation Electric Stimulation Interferential Current (IFC) Body Location Right Shoulder Duration (Minutes) 15 Patient Position Sitting Combined With Heat/Cold Cold Pack PT-OP-T Assessment and Plan Start: 07/14/19 16:03 Freq: Status: Active Protocol: Document 07/23/19 11:15 DCW (Rec: 07/23/19 12:02 DCW [id number]) Physical Therapy Assessment Impairments Impairments Pain,Posture,Soft Tissue Mobility,Strength,Tone Goals Three Impairment Pt has pain when sleeping on her right side Linotype Mechanic Goal (LTG) Pt to report no pain with sleeping for one month LTG Duration 09/13/19 Two Impairment Quick Dash score of 40.91 Linotype Mechanic Goal (LTG) Quick Dash shoulder functional scale of < 15 to show improvement in shoulder function LTG Duration 09/13/19 One Impairment Pt does not have an appropriate home exercise program Short Term Goal (STG) Patient to be compliant and independent with appropriate HEP STG Duration 08/14/19 Assessment Summary Assessment Pt showing much more pain-free mobility, her scapula has improved mobility. Physical Therapy Plan Frequency and Duration Frequency of Treatment 2x/Week Duration of Treatment 2 months Plan of Care Start Date 07/14/19 Plan of Care End Date 09/13/19 Therapeutic Interventions Therapeutic Interventions Home Exercise Program,Joint Mobilizations,Manual Therapy, Patient/Caregiver Education, Self-Care/Home Management,Soft Tissue Mobilization,Taping, Therapeutic Exercises Modalities Cold Pack/Ice Massage,Electric Stimulation,Hot Packs, Iontophoresis,Ultrasound Other Therapeutic Interventions Iontophoresis with Dexamethasone, 4 mg/mL Next Visit Focus/Plan Next Note Type Treatment Note Next Visit Plan STM to pec, parascapulars, parascapular strengthening
--- NOTE | 2019-07-27 12:54 | PT.OTN ---
Current Diagnoses Recurrent dislocation, right shoulder (07/27/19) Pain in right shoulder (07/27/19) Impingement syndrome of right shoulder (07/27/19) Physical Therapy Treatment Note PT-OP-A Visit Information Start: 07/14/19 16:03 Freq: Status: Active Protocol: Document 07/27/19 12:02 DCW (Rec: 07/27/19 12:53 DCW [id number]) Out-Patient Physical Therapy Visit Information Visit Information Visit Type Treatment Note Visit Start Time 12:02 Visit Stop Time 12:55 Total Visit Minutes 53 Visit Number 5 Number of DEVELOPMENT AND PLANNING ENGINEER Visits 0 Evaluation Information Evaluation Date 07/14/19 PT-OP-B Current Condition Start: 07/14/19 16:03 Freq: Status: Active Protocol: Document 07/14/19 15:30 DCW (Rec: 07/14/19 17:09 DCW [id number]) Current Condition History of Current Condition Onset Date Multi-year history Current Complaints Shoulder pain/soreness, recurrent shoulder dislocations/subluxations History of Current Condition Pt is a 23 year old female with a history of numerous right shoulder dislocations and subluxations. Pt notes her first instance of shoulder dislocation occurred playing volleyball in high school. Pt was previously seen in this clinic between November and February of 2019, weeks after another dislocation. Pt notes that now, she has not had another dislocation since that time, and overall feels like her shoulder is doing well. An MRI in March showed no ligamental or labral damage, and she had a Cortisone injection ~5 weeks ago, which has helped a lot with the pain . Currently, pt has the most pain when accidentally sleeping on her right shoulder , when sitting at her desk too long, or seemingly randomly through the day. Pt does report that it feels like there is a lot of pressure in her shoulder, like it needs to pop, or that it's swollen. Prior Treatments and Tests Previously attended PT from November through February, R Shoulder MRI:IMPRESSION: 1. No rotator cuff tear. 2. No labral tear. 3. Mild supraspinatus and infraspinatus tendinopathy. Per: Grace Fierro MD, PhD on 03/10/2019 Cortisone injection s/p 5 weeks PT-OP-C Subjective Start: 07/14/19 16:03 Freq: Status: Active Protocol: Document 07/27/19 12:02 DCW (Rec: 07/27/19 12:53 DCW [id number]) OP-PT Subjective Patient Comments Patient Comments Pt notes her shoulder feels better than expected. Pt reports she spent a long time cleaning over the weekend, and was worried her shoulder was going to hurt PT-OP-E Functional Tests Start: 07/14/19 16:03 Freq: Status: Active Protocol: Document 07/14/19 15:30 DCW (Rec: 07/14/19 17:09 DCW [id number]) Functional Tests Apley's Scratch Test Action 1- Left Posterior opposite shoulder Action 1- Right Posterior opposite shoulder Action 2- Left T5 Action 2- Right T4 Action 3- Left T6 Action 3- Right T9 PT-OP-F Manual Assessment Start: 07/14/19 16:03 Freq: Status: Active Protocol: Document 07/14/19 15:30 DCW (Rec: 07/14/19 17:09 DCW [id number]) Manual Assessments Soft Tissue Assessment Soft Tissue Mobility Assessment Severe tone with tenderness to palpation 3/4: Wincing and withdraw along right pec Moderate tone with tenderness to palpation 2/4: Pain with wincing at left pec, right biceps, right supraspinatus and infraspinatus. PT-OP-J Posture/Palpation/Skin Start: 07/14/19 16:03 Freq: Status: Active Protocol: Document 07/14/19 15:30 DCW (Rec: 07/14/19 17:09 DCW [id number]) Posture Evaluation Position Sitting Evaluation View Lateral Shoulder Posture (L) Rounded,(R) Rounded,(L) Forward,(R) Forward Shoulder Subluxation Position (R) Anterior Scapula Posture (L) Protracted,(R) Protracted Arm Posture (R) Internally Rotated PT-OP-K Range of Motion Start: 07/14/19 16:03 Freq: Status: Active Protocol: Document 07/14/19 15:30 DCW (Rec: 07/14/19 17:09 DCW [id number]) Shoulder Goniometric Range of Motion Shoulder Right Active Shoulder ROM WFL Yes Left Active Shoulder ROM WFL Yes PT-OP-L Special Tests Start: 03/10/20 16:03 Freq: Status: Active Protocol: Document 07/14/19 15:30 DCW (Rec: 07/14/19 17:09 DCW [id number]) Special Tests Shoulder Special Tests Yergason's Biceps Test Results R Positive Passive ER Rotator Cuff Test Results R Positive Empty Can Test Results Negative Belly Press Test Results R Positive Saavedra Gagandeep Impingement Test Results R Positive Speed's Biceps Test Results R Positive Lift-Off Rotator Cuff Test Results R Positive PT-OP-M Strength Start: 07/14/19 16:03 Freq: Status: Active Protocol: Document 07/14/19 15:30 DCW (Rec: 07/14/19 17:09 DCW [id number]) Shoulder Strength Shoulder Manual Muscle Testing Right Flexion 4- Good- Abduction (C5) 4+ Good+ Adduction 5 Normal External Rotation 4- Good- Internal Rotation 5 Normal Left Flexion 5 Normal Abduction (C5) 5 Normal Adduction 5 Normal External Rotation 5 Normal Internal Rotation 5 Normal Elbow/Forearm Strength Elbow and Forearm Manual Muscle Testing Right Flexion (C6) 5 Normal Extension (C7) 4 Good Left Flexion (C6) 5 Normal Extension (C7) 5 Normal PT-OP-Q Treatments Start: 07/14/19 16:03 Freq: Status: Active Protocol: Document 07/27/19 12:02 DCW (Rec: 07/27/19 12:53 DCW [id number]) Cardio Equipment Upper Body Ergometer (UBE) Duration (Minutes) 5 RPM 60 Seat Position 15 Height 3 Gym Equipment Therapeutic Ball Prone Walk-out Exercise Details Prone Walk-out Ball Size/Color Green - 65 cm Body Position Prone Comments x10 Therapeutic Exercises Supine Exercises Pec Stretch Supine Exercise Name Pec Stretch on foam roll Serratus Punch Supine Exercise Name Serratus Punch Side bilateral Resistance 4# Equipment Used Foam Roll Reps/Minutes x20 Standing Exercises Reverse Flys Standing Exercise Name Reverse Flys Side bilateral Resistance Lv 3 Equipment Used T-band Rows Standing Exercise Name Rows Side bilateral Resistance Lv 4 Equipment Used T-band Wall Push-ups Standing Exercise Name Wall push-ups Comments <> and W hand positions Shoulder Extension Standing Exercise Name Extension Side bilateral Resistance Lv 4 Equipment Used T-band Manual Therapy Treatment Soft Tissue Mobilization pectoralis major and minor Mobilization Type Strumming,Sustained Pressure, Trigger Point Release Intensity/Depth Moderate Body Position Supine Supraspinatus Body Location R Supraspinatus Mobilization Type Strumming,Sustained Pressure, Trigger Point Release Body Position Sitting Upper Trap Body Location R Upper Trap Mobilization Type Strumming,Sustained Pressure Body Position Sitting Subscapularis Body Location R Subscap Mobilization Type Strumming,Sustained Pressure Body Position Sitting PT-OP-R Modalities Start: 07/14/19 16:03 Freq: Status: Active Protocol: Document 07/27/19 12:02 DCW (Rec: 07/27/19 12:54 DCW [id number]) Electric Stimulation Electric Stimulation Interferential Current (IFC) Body Location Right Shoulder Duration (Minutes) 15 Patient Position Sitting Combined With Heat/Cold Cold Pack PT-OP-T Assessment and Plan Start: 07/14/19 16:03 Freq: Status: Active Protocol: Document 07/27/19 12:02 DCW (Rec: 07/27/19 12:53 DCW [id number]) Physical Therapy Assessment Impairments Impairments Pain,Posture,Soft Tissue Mobility,Strength,Tone Goals Three Impairment Pt has pain when sleeping on her right side Prison Goal (LTG) Pt to report no pain with sleeping for one month LTG Duration 09/13/19 Two Impairment Quick Dash score of 40.91 Prison Goal (LTG) Quick Dash shoulder functional scale of < 15 to show improvement in shoulder function LTG Duration 09/13/19 One Impairment Pt does not have an appropriate home exercise program Short Term Goal (STG) Patient to be compliant and independent with appropriate HEP STG Duration 08/14/19 Assessment Summary Assessment Pt reporting decreased pain during functional movement. ABle to tolerate house cleaning with no increased pain. Pt should continue with skilled therapy in order to improve shoulder strength and stability to decrease risk of dislocation/subluxation recurrence. Physical Therapy Plan Frequency and Duration Frequency of Treatment 2x/Week Duration of Treatment 2 months Plan of Care Start Date 07/14/19 Plan of Care End Date 09/13/19 Therapeutic Interventions Therapeutic Interventions Home Exercise Program,Joint Mobilizations,Manual Therapy, Patient/Caregiver Education, Self-Care/Home Management,Soft Tissue Mobilization,Taping, Therapeutic Exercises Modalities Cold Pack/Ice Massage,Electric Stimulation,Hot Packs, Iontophoresis,Ultrasound Other Therapeutic Interventions Iontophoresis with Dexamethasone, 4 mg/mL Next Visit Focus/Plan Next Note Type Treatment Note Next Visit Plan STM to pec, parascapulars, parascapular strengthening
--- NOTE | 2019-09-01 12:45 | PT-OP ANOTE ---
Spoke with patient over the phone about return to therapy as the clinic slowly opens back up following CDC recommendations. Pt is interested about scheduling further appointments.
--- NOTE | 2019-11-13 15:42 | PT.OPDS ---
Current Diagnoses Recurrent dislocation, right shoulder (07/27/19) Pain in right shoulder (07/27/19) Impingement syndrome of right shoulder (07/27/19) Visit Care Team Role Provider Type No Contreras MD Primary Care Provider Physician Specialty: Family Practice Address: [address] [place] [address], [facility] [place], [address] Email: [email or web address] Dank Delgado MD Attending Provider Physician Referring Provider Specialty: Orthopedic Surgery Address: [address] [place] [address], [id number] Email: [email or web address] Visit Number Visit Number 5 Discharge Summary PT-OP-B Current Condition Start: 07/14/19 16:03 Freq: Status: Active Protocol: Document 07/14/19 15:30 DCW (Rec: 07/14/19 17:09 DCW [id number]) Current Condition History of Current Condition Onset Date Multi-year history Current Complaints Shoulder pain/soreness, recurrent shoulder dislocations/subluxations History of Current Condition Pt is a 23 year old female with a history of numerous right shoulder dislocations and subluxations. Pt notes her first instance of shoulder dislocation occurred playing volleyball in high school. Pt was previously seen in this clinic between November and February of 2019, weeks after another dislocation. Pt notes that now, she has not had another dislocation since that time, and overall feels like her shoulder is doing well. An MRI in March showed no ligamental or labral damage, and she had a Cortisone injection ~5 weeks ago, which has helped a lot with the pain . Currently, pt has the most pain when accidentally sleeping on her right shoulder , when sitting at her desk too long, or seemingly randomly through the day. Pt does report that it feels like there is a lot of pressure in her shoulder, like it needs to pop, or that it's swollen. Prior Treatments and Tests Previously attended PT from November through February, R Shoulder MRI:IMPRESSION: 1. No rotator cuff tear. 2. No labral tear. 3. Mild supraspinatus and infraspinatus tendinopathy. Per: Grace Fierro MD, PhD on 03/10/2019 Cortisone injection s/p 5 weeks PT-OP-C Subjective Start: 07/14/19 16:03 Freq: Status: Active Protocol: Document 07/27/19 12:02 DCW (Rec: 07/27/19 12:53 DCW [id number]) OP-PT Subjective Patient Comments Patient Comments Pt notes her shoulder feels better than expected. Pt reports she spent a long time cleaning over the weekend, and was worried her shoulder was going to hurt PT-OP-E Functional Tests Start: 07/14/19 16:03 Freq: Status: Active Protocol: Document 07/14/19 15:30 DCW (Rec: 07/14/19 17:09 DCW [id number]) Functional Tests Apley's Scratch Test Action 1- Left Posterior opposite shoulder Action 1- Right Posterior opposite shoulder Action 2- Left T5 Action 2- Right T4 Action 3- Left T6 Action 3- Right T9 PT-OP-F Manual Assessment Start: 07/14/19 16:03 Freq: Status: Active Protocol: Document 07/14/19 15:30 DCW (Rec: 07/14/19 17:09 DCW [id number]) Manual Assessments Soft Tissue Assessment Soft Tissue Mobility Assessment Severe tone with tenderness to palpation 3/4: Wincing and withdraw along right pec Moderate tone with tenderness to palpation 2/4: Pain with wincing at left pec, right biceps, right supraspinatus and infraspinatus. PT-OP-J Posture/Palpation/Skin Start: 07/14/19 16:03 Freq: Status: Active Protocol: Document 07/14/19 15:30 DCW (Rec: 07/14/19 17:09 DCW [id number]) Posture Evaluation Position Sitting Evaluation View Lateral Shoulder Posture (L) Rounded,(R) Rounded,(L) Forward,(R) Forward Shoulder Subluxation Position (R) Anterior Scapula Posture (L) Protracted,(R) Protracted Arm Posture (R) Internally Rotated PT-OP-K Range of Motion Start: 07/14/19 16:03 Freq: Status: Active Protocol: Document 07/14/19 15:30 DCW (Rec: 07/14/19 17:09 DCW [id number]) Shoulder Goniometric Range of Motion Shoulder Right Active Shoulder ROM WFL Yes Left Active Shoulder ROM WFL Yes PT-OP-L Special Tests Start: 07/14/19 16:03 Freq: Status: Active Protocol: Document 07/14/19 15:30 DCW (Rec: 07/14/19 17:09 DCW [id number]) Special Tests Shoulder Special Tests Yergason's Biceps Test Results R Positive Passive ER Rotator Cuff Test Results R Positive Empty Can Test Results Negative Belly Press Test Results R Positive Saavedra Gagandeep Impingement Test Results R Positive Speed's Biceps Test Results R Positive Lift-Off Rotator Cuff Test Results R Positive PT-OP-M Strength Start: 07/14/19 16:03 Freq: Status: Active Protocol: Document 07/14/19 15:30 DCW (Rec: 07/14/19 17:09 DCW [id number]) Shoulder Strength Shoulder Manual Muscle Testing Right Flexion 4- Good- Abduction (C5) 4+ Good+ Adduction 5 Normal External Rotation 4- Good- Internal Rotation 5 Normal Left Flexion 5 Normal Abduction (C5) 5 Normal Adduction 5 Normal External Rotation 5 Normal Internal Rotation 5 Normal Elbow/Forearm Strength Elbow and Forearm Manual Muscle Testing Right Flexion (C6) 5 Normal Extension (C7) 4 Good Left Flexion (C6) 5 Normal Extension (C7) 5 Normal PT-OP-T Assessment and Plan Start: 07/14/19 16:03 Freq: Status: Active Protocol: Document 11/13/19 15:41 DCW (Rec: 11/13/19 15:41 DCW [id number]) Physical Therapy Assessment Assessment Summary Assessment Upon being contacted to return for PT after the clinic reopened following Covid-19 closure, pt requested discharge. Physical Therapy Plan Discharge Physical Therapy Discharge Reasons Patient Request Next Visit Focus/Plan Next Note Type Discharge Summary
== END 2019-11-19 13:14 ==
LOC: PHYS 12:00
PROVIDERS: PCP Family Medicine; Referring Provider Orthopaedic Surgery; Visit Provider Orthopaedic Surgery
DX: M24.411 Recurrent dislocation, right shoulder (principal); M25.511 Pain in right shoulder; M75.41 Impingement syndrome of right shoulder
CPT/HCPCS: 97014; 97110; 97140; 97161; G0283

== ENCOUNTER → 2019-11-15 09:59 | Outpatient (CLI) | payer OTHER, SELFPAY ==
[2019-11-18 12:12] LABS: COVID19 Sendout Not Detected (Not Detected)
== END ==
PROVIDERS: PCP Family Medicine; Visit Provider Physician Assistant
DX: Z01.818 Encounter for other preprocedural examination (principal)
CPT/HCPCS: 87635

== ENCOUNTER → 2020-01-06 16:20 | Outpatient (CLI) | payer OTHER, SELFPAY ==
--- NOTE | 2020-01-06 16:23 | DI.RAD.S_ITS ---
PROCEDURE: XR LUMBAR SPINE 2-3V INDICATIONS: lower back pain, point tenderness around L2, radicular symp TECHNIQUE: 3 views of the lumbar spine were acquired. COMPARISON: None. FINDINGS: Bones: 5 [id number] vertebrae are present. There is normal bony alignment. No vertebral body compression fractures. No suspicious bony lesions. Schmorl's node morphology is centered on the L1-L2 disc level, predominantly involving the inferior endplate of L1. Soft tissues: Overlying bowel gas pattern is normal. No suspicious soft tissue calcifications. IMPRESSION: The L1-L2 level shows a focal Schmorl's node which has mildly distorted the inferior endplate of L1. No subluxation is present. Vertebral height reduction is present to a mild degree at L1-2 and L5-S1. No compression fracture found. Dictated by: Florencio Blackman M.D. on 01/06/2020 at 17:03 Approved by: Florencio Blackman M.D. on 01/06/2020 at 17:04
== END ==
PROVIDERS: PCP Family Medicine; Referring Provider Family Medicine; Visit Provider Family Medicine
DX: M54.5 Low back pain (principal); M51.46 Schmorl's nodes, lumbar region
CPT/HCPCS: 72100

== ENCOUNTER → 2020-02-13 14:30 | Outpatient (CLI) | payer OTHER, SELFPAY | PROVIDERS: PCP Family Medicine; Referring Provider Internal Medicine; Visit Provider Internal Medicine | DX: Z23 Encounter for immunization (principal) | CPT/HCPCS: 90471; 90686 ==

== ENCOUNTER → 2020-05-18 13:27 | Outpatient (CLI) | payer OTHER, SELFPAY ==
[2020-05-18 15:01] LABS: COVID19 -Nasal RAPID Negative (Negative)
== END ==
PROVIDERS: PCP Family Medicine; Visit Provider Physician Assistant
DX: Z20.822 Contact with and (suspected) exposure to COVID-19 (principal)
CPT/HCPCS: 87635

== ENCOUNTER → 2020-06-15 07:54 | Outpatient (CLI) | payer OTHER, SELFPAY ==
[2020-06-15] MEDS: COVID-19 VACC #1, MRNA(MOD) 100 MCG/0.5 ML VIAL IM (08:00)
== END ==
PROVIDERS: PCP Family Medicine; Visit Provider Internal Medicine
DX: Z23 Encounter for immunization (principal)
CPT/HCPCS: 0011A; 91301

== ENCOUNTER → 2020-07-12 09:09 | Outpatient (CLI) | payer OTHER, SELFPAY | PROVIDERS: PCP Family Medicine; Referring Provider Family Medicine; Visit Provider Family Medicine | DX: Z80.3 Family history of malignant neoplasm of breast (principal); Z80.0 Family history of malignant neoplasm of digestive organs; Z80.41 Family history of malignant neoplasm of ovary; Z80.49 Family history of malignant neoplasm of other genital organs; Z80.8 Family history of malignant neoplasm of other organs or systems | CPT/HCPCS: 36415 ==

== ENCOUNTER → 2020-07-15 07:31 | Outpatient (CLI) | payer OTHER, SELFPAY ==
[2020-07-15] MEDS: COVID-19 VACC #2, MRNA(MOD) 100 MCG/0.5 ML VIAL IM (07:35)
== END ==
PROVIDERS: PCP Family Medicine; Visit Provider Internal Medicine
DX: Z23 Encounter for immunization (principal)
CPT/HCPCS: 0012A; 91301